=== PATIENT | female | born 1935 | race Two or more races ===

== ENCOUNTER 2018-10-23 11:36 | Inpatient (IN) | payer MEDICARE ==
[2018-10-23] MEDS: CLINDAMYCIN PHOS 900MG/ 50ML 50 ML IV SCH (00:55)
--- OUTSIDE RECORDS SUMMARY | 2018-10-23 11:39 | XMS REPORT | Clinical Summary ---
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 Active lactulose 10 gram/15 mL Take 20 g by 0 (15 mL) solution mouth daily. Active multivitamin with Take 1 tablet 0 minerals tablet by mouth daily. Active levothyroxine (SYNTHROID, Take 100 mcg 0 LEVOXYL) 100 mcg tablet by mouth daily. Active acetaminophen (TYLENOL) Take 650 mg 0 325 MG tablet by mouth every 6 (six) hours as needed for fever. 02/08/2018 Discontinued albuterol (ACCUNEB) 2.5 Take 2.5 mg 0 mg /3 mL (0.083 %) by nebulizer solution nebulization every 6 (six) hours as needed for wheezing. 02/08/2018 Discontinued thiamine 100 MG tablet Take 100 mg 0 by mouth daily. 03/10/2018 metoprolol tartrate 1 tablet (25 60 tablet 0 (LOPRESSOR) 25 mg tablet mg total) by 8 g-tube route 2 (two) times a day for 30 days. 03/10/2018 rivaroxaban (XARELTO) 15 Take 1 tablet 30 tablet 0 mg tablet (15 mg total) 8 by mouth daily for 30 days. 03/11/2018 predniSONE (DELTASONE) 10 Take 1 tablet 30 tablet 0 mg tablet (10 mg total) 8 by mouth daily for 30 days. 03/10/2018 nortriptyline (PAMELOR) 1 capsule (50 30 capsule 0 50 MG capsule mg total) by 8 g-tube route nightly for 30 days. Active Problems Problem Noted Date Hypoxia 02/05/2018 Altered mental status, unspecified 08/20/2017 Altered mental status 08/18/2017 Encounters Care Team Description Date Type Specialty Isac Velasquez MD Demmler, Tod Streeter MD Hypoxia (Primary Dx); Sepsis, due to unspecified organism 02/05/2018 Hospital General Internal Medicine - Encounter 02/08/2018 Isac Velasquez MD PEG tube malfunction (Primary Dx); Generalized abdominal pain 12/18/2017 Emergency Emergency Medicine after 10/22/2017 Social History Date Tobacco Use Types Packs/Day Years Used Unknown If Ever Smoked Smokeless Tobacco: Never Used Alcohol Use Drinks/Week oz/Week Comments No Sex Assigned at Date Recorded Not on file Industry Job Start Date Occupation Not on file Not on file Not on file Travel End Travel History Travel Start No recent travel history available. Last Filed Vital Signs Time Taken Vital Sign Reading 02/08/2018 11:35 AM CDT Blood Pressure 127/78 02/08/2018 11:35 AM CDT Pulse 110 02/08/2018 11:35 AM CDT Temperature 36.7 C (98.1 F) 02/08/2018 11:35 AM CDT Respiratory Rate 18 02/08/2018 11:35 AM CDT Oxygen Saturation 100% - Inhaled Oxygen - Concentration 02/05/2018 9:17 AM CDT Weight 45.4 kg (100 lb) 12/18/2017 8:13 AM CDT Height 157.5 cm (5' 2") 02/05/2018 9:17 AM CDT Body Mass Index 18.29 Plan of Treatment Health Maintenance Due Date Last Done Comments SHINGLES VACCINES (#1) 1986 65+ PNEUMOCOCCAL VACCINE 2001 (1 of 2 - PCV13) PNEUMOCOCCAL 2001 POLYSACCHARIDE VACCINE AGE 65 AND OVER INFLUENZA VACCINE 03/14/2018 Procedures Comments Procedure Name Priority Date/Time Associated Diagnosis POC GLUCOSE Routine 02/08/2018 2:21 PM CDT POC GLUCOSE Routine 02/08/2018 9:50 AM CDT XR CHEST 1 VW PORTABLE Routine 02/08/2018 9:45 AM CDT ZZESTIMATED GFR Routine 02/08/2018 7:40 AM CDT PHOSPHORUS LEVEL Routine 02/08/2018 7:40 AM CDT HC COMPLETE BLD COUNT Routine 02/08/2018 W/AUTO DIFF 7:40 AM CDT BASIC METABOLIC PANEL Routine 02/08/2018 7:40 AM CDT POC GLUCOSE Routine 02/08/2018 5:18 AM CDT POC GLUCOSE Routine 02/08/2018 1:33 AM CDT POC GLUCOSE Routine 02/07/2018 9:30 PM CDT POC GLUCOSE Routine 02/07/2018 4:19 PM CDT POC GLUCOSE Routine 02/07/2018 1:12 PM CDT POC GLUCOSE Routine 02/07/2018 8:59 AM CDT XR CHEST 1 VW PORTABLE Routine 02/07/2018 6:40 AM CDT ARTERIAL BLOOD GAS Routine 02/07/2018 5:01 AM CDT ZZESTIMATED GFR Routine 02/07/2018 3:20 AM CDT LACTIC ACID LEVEL Routine 02/07/2018 3:20 AM CDT PHOSPHORUS LEVEL Routine 02/07/2018 3:20 AM CDT HC COMPLETE BLD COUNT Routine 02/07/2018 W/AUTO DIFF 3:20 AM CDT BASIC METABOLIC PANEL Routine 02/07/2018 3:20 AM CDT POC GLUCOSE Routine 02/06/2018 8:52 PM CDT LACTIC ACID LEVEL Timed 02/06/2018 6:37 PM CDT POC GLUCOSE Routine 02/06/2018 3:49 PM CDT LACTIC ACID LEVEL Timed 02/06/2018 2:55 PM CDT POC GLUCOSE Routine 02/06/2018 11:47 AM CDT LACTIC ACID LEVEL Timed 02/06/2018 8:37 AM CDT POC GLUCOSE Routine 02/06/2018 7:20 AM CDT XR CHEST 1 VW PORTABLE Routine 02/06/2018 6:29 AM CDT POC GLUCOSE Routine 02/06/2018 4:59 AM CDT PHOSPHORUS LEVEL Routine 02/06/2018 4:16 AM CDT ZZESTIMATED GFR Routine 02/06/2018 4:16 AM CDT MAGNESIUM LEVEL Routine 02/06/2018 4:16 AM CDT HC COMPLETE BLD COUNT Routine 02/06/2018 W/AUTO DIFF 4:16 AM CDT BASIC METABOLIC PANEL Routine 02/06/2018 4:16 AM CDT HEPATIC FUNCTION PANEL Routine 02/06/2018 4:16 AM CDT ARTERIAL BLOOD GAS Routine 02/06/2018 4:05 AM CDT POC GLUCOSE Routine 02/06/2018 1:54 AM CDT ZZESTIMATED GFR Timed 02/05/2018 8:56 PM CDT BASIC METABOLIC PANEL Timed 02/05/2018 8:56 PM CDT TROPONIN Timed 02/05/2018 8:56 PM CDT LACTIC ACID LEVEL Timed 02/05/2018 8:56 PM CDT POC GLUCOSE Routine 02/05/2018 8:49 PM CDT RESPIRATORY PATHOGEN Routine 02/05/2018 PANEL 6:05 PM CDT POC GLUCOSE Routine 02/05/2018 4:08 PM CDT LACTIC ACID LEVEL, SEPSIS Timed 02/05/2018 - NOW AND REPEAT 2X EVERY 2:40 PM CDT 3 HOURS TROPONIN Timed 02/05/2018 2:40 PM CDT ECHOCARDIOGRAM 2D Routine 02/05/2018 COMPLETE W MMODE SPECTRAL 1:56 PM CDT COLOR DOPPLER (22191) POC GLUCOSE Routine 02/05/2018 12:[address] ANGIOGRAM PE CHEST STAT 02/05/2018 12:[address] HEAD WO CONTRAST STAT 02/05/2018 12:11 PM CDT ARTERIAL BLOOD GAS Routine 02/05/2018 10:40 AM CDT BLOOD CULTURE, AEROBIC & Routine 02/05/2018 ANAEROBIC 9:56 AM CDT XR CHEST 1 VW PORTABLE STAT 02/05/2018 9:54 AM CDT ZZESTIMATED GFR STAT 02/05/2018 9:51 AM CDT B NATRIURETIC PEPTIDE STAT 02/05/2018 9:51 AM CDT TROPONIN STAT 02/05/2018 9:51 AM CDT PROTHROMBIN TIME WITH INR STAT 02/05/2018 9:51 AM CDT LACTIC ACID LEVEL, SEPSIS STAT 02/05/2018 - NOW AND REPEAT 2X EVERY 9:51 AM CDT 3 HOURS COMPREHENSIVE METABOLIC STAT 02/05/2018 PANEL 9:51 AM CDT CBC WITH PLATELET AND STAT 02/05/2018 DIFFERENTIAL 9:51 AM CDT BLOOD CULTURE, AEROBIC & Routine 02/05/2018 ANAEROBIC 9:51 AM CDT URINALYSIS SCREEN AND STAT 02/05/2018 MICROSCOPY, WITH REFLEX 9:50 AM CDT TO CULTURE GRAM STAIN STAT 02/05/2018 9:50 AM CDT URINE CULTURE STAT 02/05/2018 9:50 AM CDT ECG ED PRELIMINARY Routine 02/05/2018 INTERPRETATION 9:41 AM CDT ECG 12-LEAD STAT 02/05/2018 9:38 AM CDT INTUBATION Routine 02/05/2018 8:58 AM CDT XR ABDOMEN 1 VW PORTABLE STAT 12/18/2017 8:51 AM CDT NV CHANGE GASTROSTOMY Routine 12/18/2017 TUBE PERCUTANEOUS W/O 8:13 AM CDT GUIDE after 10/22/2017 Results * POC glucose (02/08/2018 2:21 PM CDT) Only the most recent of 17 results within the time period is included. POC glucose 217 (H) 65 - 100 mg/dL [facility] Comment: PATHOLOGY AND Meter ID: [id number] GENOMIC MEDICINE Kit Assembler: Loretta Magana Performing Organization Address City/State/Zipcode Phone Number [facility] [address] [place] [address] PATHOLOGY AND GENOMIC MEDICINE * XR Chest 1 Vw Portable (02/08/2018 9:45 AM CDT) Only the most recent of 4 results within the time period is included. Narrative Performed At EXAMINATION: XR CHEST 1 VW PORTABLE [facility] INDICATION: Respiratory Failure or Arrest COMPARISON: Most recent prior. Prior chest and abdominal CTs. IMPRESSION: Stable appearance of the heart and mediastinum. Arteriosclerosis and tortuous thoracic aorta. Hypoventilation of the lungs with bibasilar opacities likely representing atelectasis. Stable calcified granuloma right lower lobe. No visible effusion or pneumothorax. 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 [facility]-[id number] Procedure Note Hm Interface, Radiology Results Incoming - 02/08/2018 9:53 AM CDT EXAMINATION: XR CHEST 1 VW PORTABLE INDICATION: Respiratory Failure or Arrest COMPARISON: Most recent prior. Prior chest and abdominal CTs. IMPRESSION: Stable appearance of the heart and mediastinum. Arteriosclerosis and tortuous thoracic aorta. Hypoventilation of the lungs with bibasilar opacities likely representing atelectasis. Stable calcified granuloma right lower lobe. No visible effusion or pneumothorax. 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 [facility]-[id number] Performing Organization Address City/[facility]/Zipcode Phone Number [facility] [address] [place] [address] * Estimated GFR (02/08/2018 7:40 AM CDT) Only the most recent of 5 results within the time period is included. GFR Non Af Amer >90 mL/min/1.73 m2 [facility] PATHOLOGY AND GENOMIC MEDICINE GFR Af Amer >90 mL/min/1.73 m2 [facility] Comment: PATHOLOGY AND Chronic kidney disease: <60 GENOMIC MEDICINE mL/min/1.73m2 Kidney failure: <15 mL/min/1.73m2 The estimated GFR is calculated from the IDMS-traceable Modification of Diet in Renal Disease Equation. The accuracy of the calculation is poor when the creatinine is normal. Calculated values >90 mL/min/1.73m2 are not reported. This equation has not been validated in children (<18 years), women, the elderly (>70 years), or ethnic groups other than Caucasians and Americans. Specimen Plasma specimen Performing Organization Address City/State/Zipcode Phone Number [facility] [address] [place] [address] PATHOLOGY AND GENOMIC MEDICINE * CBC with platelet and differential (02/08/2018 7:40 AM CDT) Only the most recent of 4 results within the time period is included. WBC 7.4 4.2 - 11.0 k/uL [facility] PATHOLOGY AND GENOMIC MEDICINE RBC 4.27 4.04 - 5.86 m/uL [facility] PATHOLOGY AND GENOMIC MEDICINE HGB 12.0 11.5 - 15.3 g/dL [facility] PATHOLOGY AND GENOMIC MEDICINE HCT 37.5 34.0 - 45.0 % [facility] PATHOLOGY AND GENOMIC MEDICINE MCV 87.8 80.0 - 98.0 fL [facility]OLOGY AND GENOMIC MEDICINE MCH 28.1 27.0 - 34.0 pg [facility] PATHOLOGY AND GENOMIC MEDICINE MCHC 32.0 31.5 - 36.5 g/dL [facility] PATHOLOGY AND GENOMIC MEDICINE RDW - SD 52.9 (H) 37.0 - 51.0 fL [facility] PATHOLOGY AND GENOMIC MEDICINE MPV 10.5 (H) 7.4 - 10.4 fL [facility]OLOGY AND GENOMIC MEDICINE Platelet count 231 150 - 400 k/uL [facility] PATHOLOGY AND GENOMIC MEDICINE Nucleated RBC 0.00 /100 WBC [facility] PATHOLOGY AND GENOMIC MEDICINE Neutrophils 76.0 (H) 36.0 - 66.0 % [facility] PATHOLOGY AND GENOMIC MEDICINE Lymphocytes 15.0 (L) 24.0 - 44.0 % [facility] PATHOLOGY AND GENOMIC MEDICINE Monocytes 7.8 (H) 0.0 - 6.0 % [facility] PATHOLOGY AND GENOMIC MEDICINE Eosinophils 0.5 0.0 - 6.0 % [facility] PATHOLOGY AND GENOMIC MEDICINE Basophils 0.4 0.0 - 1.2 % [facility] PATHOLOGY AND GENOMIC MEDICINE Immature granulocytes 0.3 0.0 - 1.0 % [facility] PATHOLOGY AND GENOMIC MEDICINE Specimen Blood Performing Organization Address City/[facility] [place] [address] PATHOLOGY [facility] * Phosphorus level (02/08/2018 7:40 AM CDT) Only the most recent of 3 results within the time period is included. Phosphorus 1.8 (L) 2.4 - 4.5 mg/dL [facility] PATHOLOGY AND GENOMIC MEDICINE Specimen Plasma specimen Performing Organization Address City/[facility] [place] [address] PATHOLOGY [facility] * Basic metabolic panel (02/08/2018 7:40 AM CDT) Only the most recent of 4 results within the time period is included. Sodium 138 135 - 150 mEq/L [facility] DEPARTMENT OF PATHOLOGY AND GENOMIC MEDICINE Potassium 4.1 3.5 - 5.0 mEq/L [facility] PATHOLOGY AND GENOMIC MEDICINE Chloride 100 98 - 112 mEq/L [facility] PATHOLOGY AND GENOMIC MEDICINE CO2 24 24 - 31 mmol/L [facility] PATHOLOGY AND GENOMIC MEDICINE Anion gap 14@ANIO 7 - 15 mEq/L [facility] PATHOLOGY AND GENOMIC MEDICINE BUN 21 (H) 7 - 18 mg/dL [facility] PATHOLOGY AND GENOMIC MEDICINE Creatinine 0.60 0.50 - 0.90 mg/dL [facility] PATHOLOGY AND GENOMIC MEDICINE Glucose 168 (H) 65 - 100 mg/dL [facility] PATHOLOGY AND GENOMIC MEDICINE Calcium 9.6 8.8 - 10.2 mg/dL [facility] PATHOLOGY AND GENOMIC MEDICINE Specimen Plasma specimen Performing Organization Address City/State/Zipcode Phone Number [place] [address] [place] [address] PATHOLOGY AND GENOMIC MEDICINE * Arterial blood gas (02/07/2018 5:01 AM CDT) Only the most recent of 3 results within the time period is included. Kit Assembler JSXB [facility] PATHOLOGY AND GENOMIC MEDICINE Collection site LRA [facility] PATHOLOGY AND GENOMIC MEDICINE O2 therapy HFNC [facility] PATHOLOGY AND GENOMIC MEDICINE pH, arterial 7.580 (HH) 7.350 - 7.450 units [facility] Comment: PATHOLOGY AND Results called to and read GENOMIC MEDICINE back by FRANK GUALLPA at02/07/201805:10 by _IV_. pCO2, arterial 24.8 (LL) 35.0 - 45.0 mmHg [facility] Comment: PATHOLOGY AND Results called to and read GENOMIC MEDICINE back by FRANK GUALLPA at02/07/201805:10 by _IV_. pO2, arterial 176.0 (H) 80.0 - 90.0 mmHg [facility] PATHOLOGY AND GENOMIC MEDICINE O2 saturation, arterial >100.0 95.0 - 100.0 % [facility] PATHOLOGY AND GENOMIC MEDICINE Base excess, arterial 1.3 mEq/L [facility] PATHOLOGY AND GENOMIC MEDICINE Bicarbonate 23.2 21.0 - 28.0 mEq/L [facility] PATHOLOGY AND GENOMIC MEDICINE O2 content 17.1 VOL% [facility] PATHOLOGY AND GENOMIC MEDICINE FiO2, inspired O2% 32.0 % [facility] PATHOLOGY AND GENOMIC MEDICINE Inspired O2 l/m 3 L/min [facility] PATHOLOGY AND GENOMIC MEDICINE Carboxyhemoglobin 0.2 0.0 - 1.4 % [facility] Comment: PATHOLOGY AND Reference Ranges: GENOMIC MEDICINE Carboxyhemoglobin Non smoker: 0.0 - 2.0% Smoker: 2.1 - 5.0% Heavy smoker: 5.1 - 9% Methemoglobin <0.0 0.0 - 1.0 % [facility] PATHOLOGY AND GENOMIC MEDICINE Hemoglobin, blood gas 12.0 12.0 - 16.0 g/dL [facility] PATHOLOGY AND GENOMIC MEDICINE pO2, A-a 24.5 mmHg [facility] PATHOLOGY AND GENOMIC MEDICINE Specimen Blood Performing Organization Address [facility] [place] [address] PATHOLOGY AND GENOMIC MEDICINE * Lactic acid level (02/07/2018 3:20 AM CDT) Only the most recent of 5 results within the time period is included. Lactic acid 1.8 0.5 - 2.2 mmol/L [facility] PATHOLOGY AND GENOMIC MEDICINE Specimen Blood Performing Organization Address [facility] [place] [address] PATHOLOGY AND GENOMIC MEDICINE * Magnesium level (02/06/2018 4:16 AM CDT) Magnesium 1.80 1.60 - 2.40 mg/dL [facility] PATHOLOGY AND GENOMIC MEDICINE Specimen Plasma specimen Performing Organization Address [facility] [place] [address] PATHOLOGY AND GENOMIC MEDICINE * Hepatic function panel (02/06/2018 4:16 AM CDT) Albumin 2.6 (L) 3.5 - 5.0 g/dL [facility] PATHOLOGY AND GENOMIC MEDICINE Total bilirubin 0.4 0.2 - 1.2 mg/dL [facility] PATHOLOGY AND GENOMIC MEDICINE Bilirubin direct <0.2 0.0 - 0.4 mg/dL [facility] PATHOLOGY AND GENOMIC MEDICINE Alkaline phosphatase 93 0 - 104 U/L [facility] PATHOLOGY AND GENOMIC MEDICINE Protein 6.8 6.3 - 8.3 g/dL [facility] PATHOLOGY AND GENOMIC MEDICINE ALT 15 5 - 50 U/L [facility] PATHOLOGY AND GENOMIC MEDICINE AST 32 10 - 35 U/L [facility] PATHOLOGY AND GENOMIC MEDICINE Specimen Plasma specimen Performing Organization Address City/[facility]/Zipcode Phone Number [address] [place] [address] PATHOLOGY AND GENOMIC MEDICINE * Troponin (02/05/2018 8:56 PM CDT) Only the most recent of 3 results within the time period is included. Troponin <0.30 0.00 - 0.30 ng/mL [facility] Comment: PATHOLOGY AND 0.11 - 1.49 GENOMIC MEDICINE ng/mlMay indicate increased risk of acute coronary syndrome. >=1.5 ng/ml Consistent with acute myocardial infarction. The diagnostic value of a single normal or non-diagnostic result is questionable.Serial samples at 2-6 hour intervals are required to rule out acute myocardial injury. Specimen Plasma specimen Performing Organization Address [facility] Cent[facility]ode Phone Number [address] [place] [address] PATHOLOGY AND GENOMIC MEDICINE * Respiratory pathogen panel (02/05/2018 6:05 PM CDT) Respiratory pathogen Positive for [facility] DEPARTMENT OF panel Rhinovirus/Enterovirus PATHOLOGY AND GENOMIC MEDICINE Negative for all other pathogens tested: Negative for Adenovirus Negative for Coronavirus HKU1 Negative for Coronavirus NL63 Negative for Coronavirus 229E Negative for Coronavirus OC43 Negative for Human Metapneumovirus Negative for Influenza A Negative for Influenza A/H1 Negative for Influenza A/H3 Negative for Influenza A/H1-2009 Negative for Influenza B Negative for Parainfluenza Virus 1 Negative for Parainfluenza Virus 2 Negative for Parainfluenza Virus 3 Negative for Parainfluenza Virus 4 Negative for Respiratory Syncytial Virus Negative for Bordetella pertussis Negative for Chlamydophila pneumoniae Negative for Mycoplasma pneumoniae This real-time PCR assay detects the presence of nucleic acids (RNA or DNA) for the respiratory pathogens listed. A result of "Not-detected" does not exclude the possibility of the presence of one or more pathogens at concentrations less than the detectable limits of the assa (A) Comment: Specimen Information Specimen Source: Nares Specimen Site: Right Specimen Nares - Right Performing Organization Address City/[facility]/Zipcode Phone Number [facility] DEPARTMENT OF [address] [place] [address] PATHOLOGY AND GENOMIC MEDICINE * Lactic acid level, SEPSIS - Now and repeat 2x every 3 hours (02/05/2018 2:40 PM CDT) Only the most recent of 2 results within the time period is included. Lactic acid 4.1 (HH) 0.5 - 2.2 mmol/L [facility] Comment: PATHOLOGY AND Results called to and read [place] MEDICINE back by JUANCARLOS WARE / [employer]BA [employer] 15:2406 JGP Specimen Blood Performing Organization Address City/[facility]/Zipcode Phone Number [facility] [address] [place] [address] PATHOLOGY AND GENOMIC MEDICINE * Echocardiogram complete w contrast and 3D if needed (02/05/2018 1:56 PM CDT) Velocity Ratio (V1/V2) 0.72 m/s [facility] IVS,d 1.15 0.6 - 1.2 cm [facility] EF 61.49 % [facility] LVPWD,d 1.09 cm [facility] AoV Mean PG 3.04 mmHg [facility] AV LVOT peak gradient 2.77 mmHg [facility] MV mean gradient 2.84 mmHg [facility] MV valve area p 1/2 6.90 cm2 [facility] method PV Pk Grad 3.60 mmHg [facility] E wave decelartion time 109.90 msec [facility] LVOT Diam,S 1.88 cm [facility] LVOT area 2.77 cm2 [facility] LVOT Vmax 0.83 m/s [facility] LVOT VTI 0.14 m [facility] AoV Peak PG 5.27 mmHg [facility] MV Peak E Karl 1.15 m/s [facility] MV stenosis pressure 1/2 31.87 ms [facility] time MV Peak A Karl 0.00 m/s [facility] Ao Root Diameter 2.84 cm [facility] AoV Area, Vmax 2.01 cm2 [facility] AoV Area, VTI 1.79 cm2 [facility] AoV Vmax 1.15 m/s [facility] IVS/LVPW,2D 1.06 [facility] Left Atrium Dimension 3.19 cm [facility] Anterior LV,d 3.88 cm [facility] LV,s 2.62 cm [facility] PV VMAX 0.95 m/s [facility] TR Vpeak 2.57 mm/s [facility] MV E A ratio 343.39 mmHg [facility] TR pk grad 23.92 mmHg [facility] MR peak grad 6.65 mmHg [facility] Ao Root Diameter 2.84 cm [facility] AR Press Half Time 482.24 ms [facility] LV SYS VOL 25.08 ml [facility] LV ORNELAS VOL 65.13 ml [facility] LA area s A4C 10.30 cm2 [facility] LA Vol MOD A4C 16.75 ml [facility] LV SV Teich 2D 40.05 ml [facility] LV Vol s Teich PSAX 25.08 ml [facility] LVOT CO 3.61 l/min [facility] LVOT HR for LVOT CO 92.19 bpm [facility] MV Vmax 1.29 m [facility] MV VTI Tips 0.18 m [facility] AoV Vmn 0.84 [facility] AR slope 1.98 [facility] Ar Vmax 3.30 [facility] IVS s 2D 1.46 [facility] LV FS Cube 2D 32.48 [facility] LV FS Teich 2D 32.48 [facility] AoV VTI 0.22 m [facility] LV EF,2D 69.22 % [facility] MV AE ratio 0.00 [facility] LVOT Vmn 0.58 [facility] Aov area Vmn 1.92 cm2 [facility] LVOT mean grad 1.52 mmHg [facility] MAX Pred HR 138.13 [facility] 85 of MPHR 117.41 [facility] AR DT 1,662.90 msec [facility] AR pk grad 43.51 mmHg [facility] Calc MPHR 138.13 bpm [facility] IVS pct thck PLAX 27.11 % [facility] LV SV Cube 2D 40.45 ml [facility] LV vol d cube 2D 58.44 ml [facility] LV vol s cube 2D 17.99 ml [facility] LVPW pct thck PLAX 32.48 % [facility] LVPW s PLAX 1.44 cm [facility] MV Decel slope 10.48 m/s2 [facility] Pred Exer Dur R1 5.54 [facility] Pred METS R1 4.06 [facility] Narrative Performed At [facility] The left ventricle chamber size is normal. Left Ventricular ejection fraction is 55 - 60%. Trace aortic regurgitation. Trace aortic regurgitation Performing Organization Address City/State/Zipcode Phone Number [facility] [address] [place] [address] * CT Angiogram Pe Chest (02/05/2018 12:11 PM CDT) Narrative Performed At EXAMINATION: CT ANGIOGRAM PE CHEST [facility] CLINICAL HISTORY: sob TECHNIQUE:CT angiographic images of the chest are obtained during intravenous administration of iodinated contrast. Computerized reformatted images and 3-D images were also obtained and archived. CT pulmonary embolus protocol. CT scans are performed using radiation dose reduction techniques.Technical factors are evaluated and adjusted to ensure appropriate moderation of exposure.Automated dose management technology is applied to adjust radiation exposure while achieving a diagnostic quality image. COMPARISON: 02/05/2018 FINDINGS: The endotracheal tube and nasogastric tube are present. The thoracic aorta has no aneurysmal dilatation. The pulmonary arteries are well opacified. There is no evidence of any pulmonary embolism. The heart has no pericardial effusion. The visualized portions of the liver, spleen are unremarkable. There is a 6 cm calcified hematoma seen within the left adrenal gland. This was seen on prior studies and is unchanged. The lung zones demonstrate mild emphysematous changes to be present. There is mild compressive atelectasis seen at the lower lung bases. There is no pleural effusion or pneumothorax. IMPRESSION: 1. There is no evidence of any pulmonary embolism. 2. The thoracic aorta has no aneurysmal dilatation or dissection. Mild atherosclerotic vascular changes are present. 3. The lung zones demonstrate emphysematous changes to be present. There is no focal consolidation. 4. Compressive atelectasis is seen at the lower lung bases. [facility]-[id number] Procedure Note Interface, Radiology Results Incoming - 02/05/2018 12:25 PM CDT EXAMINATION: CT ANGIOGRAM PE CHEST CLINICAL HISTORY: sob TECHNIQUE: CT angiographic images of the chest are obtained during intravenous administration of iodinated contrast. Computerized reformatted images and 3-D images were also obtained and archived. CT pulmonary embolus protocol. CT scans are performed using radiation dose reduction techniques. Technical factors are evaluated and adjusted to ensure appropriate moderation of exposure. Automated dose management technology is applied to adjust radiation exposure while achieving a diagnostic quality image. COMPARISON: 02/05/2018 FINDINGS: The endotracheal tube and nasogastric tube are present. The thoracic aorta has no aneurysmal dilatation. The pulmonary arteries are well opacified. There is no evidence of any pulmonary embolism. The heart has no pericardial effusion. The visualized portions of the liver, spleen are unremarkable. There is a 6 cm calcified hematoma seen within the left adrenal gland. This was seen on prior studies and is unchanged. The lung zones demonstrate mild emphysematous changes to be present. There is mild compressive atelectasis seen at the lower lung bases. There is no pleural effusion or pneumothorax. IMPRESSION: 1. There is no evidence of any pulmonary embolism. 2. The thoracic aorta has no aneurysmal dilatation or dissection. Mild atherosclerotic vascular changes are present. 3. The lung zones demonstrate emphysematous changes to be present. There is no focal consolidation. 4. Compressive atelectasis is seen at the lower lung bases. [id number] Performing Organization Address City/State/Zipcode Phone Number [facility] [address] [place] [address] * CT Head Wo Contrast (02/05/2018 12:11 PM CDT) Narrative Performed At EXAMINATION: CT HEAD WO CONTRAST [facility] CLINICAL HISTORY: HEADACHEACUTESEVERETHUNDERCLAPWORST DAMIAN OF LIFE COMPARISON:CT brain from August 18, 2017 TECHNIQUE: Noncontrast enhanced images of the brain were obtained from the skull base to the vertex. Both soft tissue and bone reconstruction algorithms were performed.CT scans are performed using radiation dose reduction techniques. Technical factors are evaluated and adjusted to ensure appropriate moderation of exposure. Automated dose management technology is applied to adjust radiation exposure while achieving a diagnostic quality image. FINDINGS: Artifacts obscure details. There is no definite evidence of acute intracranial hemorrhage or mass, hydrocephalus or midline shift, stroke or thrombus in the vessels. There are relatively stable severe chronic changes in the brain including old infarcts in the cerebellum, left parietal lobe, thalami, basal ganglia and possibly the lizandro. There is an endotracheal tube and a nasogastric tube. The orbits are unremarkable. There is mucosal thickening and partial opacification of some of the sinuses. IMPRESSION: No acute intracranial abnormality identified. 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 Sinusitis which is improved compared with August year [id number] Procedure Note Interface, Radiology Results Incoming - 02/05/2018 12:16 PM CDT EXAMINATION: CT HEAD WO CONTRAST CLINICAL HISTORY: HEADACHE ACUTE SEVERE THUNDERCLAP WORST DAMIAN OF LIFE COMPARISON: CT brain from August 18, 2017 TECHNIQUE: Noncontrast enhanced images of the brain were obtained from the skull base to the vertex. Both soft tissue and bone reconstruction algorithms were performed. CT scans are performed using radiation dose reduction techniques. Technical factors are evaluated and adjusted to ensure appropriate moderation of exposure. Automated dose management technology is applied to adjust radiation exposure while achieving a diagnostic quality image. FINDINGS: Artifacts obscure details. There is no definite evidence of acute intracranial hemorrhage or mass, hydrocephalus or midline shift, stroke or thrombus in the vessels. There are relatively stable severe chronic changes in the brain including old infarcts in the cerebellum, left parietal lobe, thalami, basal ganglia and possibly the lizandro. There is an endotracheal tube and a nasogastric tube. The orbits are unremarkable. There is mucosal thickening and partial opacification of some of the sinuses. IMPRESSION: No acute intracranial abnormality identified. 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 Sinusitis which is improved compared with August this year [id number] Performing Organization Address [facility] Centercode Phone Number [facility] [address] [place] [address] * Blood culture, aerobic & anaerobic (02/05/2018 9:56 AM CDT) Only the most recent of 2 results within the time period is included. Blood culture isolate No growth after 5 days of [facility] DEPARTMENT OF incubation. PATHOLOGY AND Comment: GENOMIC MEDICINE Specimen Information Specimen Source: Blood Specimen Site: Hand Right Specimen Blood Performing Organization Address [facility] Centercond Phone Number [facility] [address] [place] [address] PATHOLOGY AND GENOMIC MEDICINE * Prothrombin time with INR (02/05/2018 9:51 AM CDT) Prothrombin time 14.7 12.0 - 15.0 sec [facility]Y AND GENOMIC MEDICINE INR 1.13 (H) 0.92 - 1.12 [facility] Comment: PATHOLOGY AND For patients on anticoagulant GENOMIC MEDICINE therapy, reference ranges below: Indication: INR Value Treatment of Venous Thrombosis, 2.0-3.0 pulmonary emboli, or prophylaxis of a venous thrombosis, or systemic emboli. High dose, high risk patients 3.0-4.5 with mechanical valves. NOTE:INR values over 3.0 are sometimes associated with gastrointestinal hemorrhage, especially values over 4.0. Specimen Blood Performing Organization Address City/[facility] Centercode Phone Number [facility] [address] [place] [address] PATHOLOGY AND GENOMIC MEDICINE * B natriuretic peptide (02/05/2018 9:51 AM CDT) BNP 214 (H) 0 - 100 pg/mL [facility] OF PATHOLOGY AND GENOMIC MEDICINE Specimen Blood Performing Organization Address [facility] Centercode Phone Number [place] [address] [place] [address] PATHOLOGY AND GENOMIC MEDICINE * Comprehensive metabolic panel (02/05/2018 9:51 AM CDT) Sodium 138 135 - 150 mEq/L [facility] OF PATHOLOGY AND GENOMIC MEDICINE Potassium 4.8 3.5 - 5.0 mEq/L [facility] OF PATHOLOGY AND GENOMIC MEDICINE Chloride 101 98 - 112 mEq/L [facility] OF PATHOLOGY AND GENOMIC MEDICINE CO2 21 (L) 24 - 31 mmol/L [facility] OF PATHOLOGY AND GENOMIC MEDICINE Anion gap 16@ANIO (H) 7 - 15 mEq/L [facility] OF PATHOLOGY AND GENOMIC MEDICINE BUN 30 (H) 7 - 18 mg/dL [facility] OF PATHOLOGY AND GENOMIC MEDICINE Creatinine 0.80 0.50 - 0.90 mg/dL [facility] OF PATHOLOGY AND GENOMIC MEDICINE Glucose 160 (H) 65 - 100 mg/dL [facility] OF PATHOLOGY AND GENOMIC MEDICINE Calcium 9.7 8.8 - 10.2 mg/dL [facility] OF PATHOLOGY AND GENOMIC MEDICINE Protein 7.7 6.3 - 8.3 g/dL [facility] OF PATHOLOGY AND GENOMIC MEDICINE Albumin 3.3 (L) 3.5 - 5.0 g/dL [facility] OF PATHOLOGY AND GENOMIC MEDICINE A/G ratio 0.8 0.7 - 3.8 [facility] OF PATHOLOGY AND GENOMIC MEDICINE Alkaline phosphatase 109 (H) 0 - 104 U/L [facility] OF PATHOLOGY AND GENOMIC MEDICINE AST 25 10 - 35 U/L [facility] OF PATHOLOGY AND GENOMIC MEDICINE ALT 16 5 - 50 U/L [facility] OF PATHOLOGY AND GENOMIC MEDICINE Total bilirubin 0.8 0.2 - 1.2 mg/dL [facility] OF PATHOLOGY AND GENOMIC MEDICINE Specimen Plasma specimen Performing Organization Address [facility] Centercode Phone Number [place] [address] [place] [address] PATHOLOGY AND GENOMIC MEDICINE * Urinalysis screen and microscopy, with reflex to culture (02/05/2018 9:50 AM CDT) Specimen site [place] [facility] OF PATHOLOGY AND GENOMIC MEDICINE Color, UA Yellow [facility] OF PATHOLOGY AND GENOMIC MEDICINE Appearance, UA Slightly-Cloudy [facility] OF PATHOLOGY AND GENOMIC MEDICINE Specific gravity, UA 1.014 1.001 - 1.035 [facility] OF PATHOLOGY AND GENOMIC MEDICINE pH, UA 8.0 5.0 - 8.5 [facility] OF PATHOLOGY AND GENOMIC MEDICINE Protein, UA 1+ (A) Negative [facility] OF PATHOLOGY AND GENOMIC MEDICINE Glucose, UA Negative Negative [facility] OF PATHOLOGY AND GENOMIC MEDICINE Ketones, UA Negative Negative [facility] OF PATHOLOGY AND GENOMIC MEDICINE Bilirubin, UA Negative Negative [facility] OF PATHOLOGY AND GENOMIC MEDICINE Blood, UA Negative Negative [facility] OF PATHOLOGY AND GENOMIC MEDICINE Nitrite, UA Negative Negative [facility] OF PATHOLOGY AND GENOMIC MEDICINE Urobilinogen, UA 4.0 (A) <2.0 [facility] OF PATHOLOGY AND GENOMIC MEDICINE Leukocyte esterase, UA Trace (A) Negative [facility] OF PATHOLOGY AND GENOMIC MEDICINE Epithelial cells, UA Few /HPF [facility] OF PATHOLOGY AND GENOMIC MEDICINE WBC, UA 13 (H) 0 - 5 /HPF [facility] OF PATHOLOGY AND GENOMIC MEDICINE RBC, UA 2 0 - 5 /HPF [facility] OF PATHOLOGY AND GENOMIC MEDICINE Bacteria, UA Trace None seen [facility] OF PATHOLOGY AND GENOMIC MEDICINE Yeast, UA None seen [facility] OF PATHOLOGY AND GENOMIC MEDICINE Yeast with pseudohyphae, None seen [facility] OF UA PATHOLOGY AND GENOMIC MEDICINE Specimen Urine Performing Organization Address City/State/Zipcode Phone Number [facility] [address] [place] [address] PATHOLOGY AND GENOMIC MEDICINE * Gram stain (02/05/2018 9:50 AM CDT) Gram stain result Rare WBC's [facility] DEPARTMENT OF Few Gram positive cocci in PATHOLOGY AND pairs GENOMIC MEDICINE Comment: Specimen Information Specimen Source: Urine Specimen Site: [place] Specimen Urine - [place] Performing Organization Address City/State/Zipcode Phone Number [facility] DEPARTMENT OF [address] [place] [address] PATHOLOGY AND GENOMIC MEDICINE * Urine culture (02/05/2018 9:50 AM CDT) Urine culture isolate Mixed Gram positive alexandra [facility] DEPARTMENT OF 10-1 cfu/ml PATHOLOGY AND (A) GENOMIC MEDICINE Comment: Specimen Information Specimen Source: Urine Specimen Site: [place] Specimen Urine - [place] Performing Organization Address [facility] Phone Number [facility] DEPARTMENT OF [address] [place] [address] PATHOLOGY AND GENOMIC MEDICINE * ECG ED Preliminary Interpretation - NOT AN ORDER (02/05/2018 9:41 AM CDT) Narrative Performed At Isac Velasquez MD 02/05/20189:41 AM ECG ED Preliminary Interpretation - Not an Order Performed by: ISAC VELASQUEZ Authorized by: ISAC VELASQUEZ ECG reviewed by ED Physician in the absence of a boiler service technician: yes Previous ECG: Previous ECG:Compared to current Interpretation: Interpretation: normal Rate: ECG rate:108 ECG rate assessment: tachycardic Rhythm: Rhythm: sinus rhythm and sinus tachycardia Ectopy: Ectopy: none QRS: QRS axis:Normal Conduction: Conduction: normal ST segments: ST segments:Normal T waves: T waves: normal * ECG 12 lead (02/05/2018 9:38 AM CDT) Ventricular rate 108 [facility] Atrial rate 108 [facility] NV interval 188 [facility] QRSD interval 106 [facility] QT interval 356 [facility] QTC interval 477 [facility] P axis 1 77 [facility] QRS axis 1 -29 [facility] T wave axis 60 [facility] EKG impression Sinus tachycardia-Inferior [facility] MUSE infarct , age undetermined-Abnormal ECG-No previous ECGs available- Performing Organization Address City/[facility] Centercond Phone Number [facility] [address] [place] [address] * INTUBATION (02/05/2018 8:58 AM CDT) Narrative Performed At Isac Velasquez MD 02/05/2018 11:28 AM Intubation Performed by: ISAC VELASQUEZ Authorized by: ISAC VELASQUEZ Consent: Consent obtained:Emergent situation Consent given by: son. Risks discussed:Aspiration, bleeding, , brain injury, dental trauma, hypoxia, laryngeal injury and pneumothorax Alternatives discussed:No treatment, delayed treatment, alternative treatment, observation and referral [place] protocol: Procedure explained and questions answered to patient or proxy's satisfaction: yes Relevant documents present and verified: yes Test results available and properly labeled: yes Imaging studies available: yes Required blood products, implants, devices, and special equipment available: yes Site/side marked: yes Immediately prior to procedure, a time out was called: yes Patient identity confirmed:Arm band Pre-procedure details: Patient status:Altered mental status Mallampati score:3 Pretreatment medications:Lidocaine Induction:Etomidate Paralytics:Succinylcholine Procedure details: Preoxygenation:Bag valve mask CPR in progress: no Intubation method:Oral Technique:Video laryngoscopy Laryngoscope blade:Mac 3 Grade view:3 Difficult airway?: Yes Tube size (mm):7.5 Tube type:Cuffed Number of attempts:1 Ventilation between attempts: no Cricoid pressure: yes Tube visualized through cords: yes Placement assessment: ETT to lip:23 ETT to teeth:23 Tube secured with:ETT menezes Breath sounds:Equal Placement verification: chest rise and CXR verification CXR findings:ETT in proper place Post-procedure details: Patient tolerance of procedure:Tolerated well, no immediate complications * XR Abdomen 1 Vw Portable (12/18/2017 8:51 AM CDT) Narrative Performed At EXAMINATION:XR ABDOMEN 1 VW PORTABLE [facility] CLINICAL HISTORY:feeding tube placement COMPARISON:None. IMPRESSION: Gastrostomy tube is located in the gastric fundus. Contrast was administered which opacifies the gastric lumen and demonstrates mild gastroesophageal reflux. Bowel gas pattern is nonobstructive. There is no gross intra-abdominal free air. Eggshell calcification related to the left adrenal gland noted in the left upper abdomen. There is vascular calcification. [facility]-[id number] Procedure Note Interface, Radiology Results Incoming - 12/18/2017 9:01 AM CDT EXAMINATION: XR ABDOMEN 1 VW PORTABLE CLINICAL HISTORY: feeding tube placement COMPARISON: None. IMPRESSION: Gastrostomy tube is located in the gastric fundus. Contrast was administered which opacifies the gastric lumen and demonstrates mild gastroesophageal reflux. Bowel gas pattern is nonobstructive. There is no gross intra-abdominal free air. Eggshell calcification related to the left adrenal gland noted in the left upper abdomen. There is vascular calcification. [facility]-[id number] Performing Organization Address City/State/Zipcode Phone Number [facility] [address] [place] [address] * Feeding tube replacement (12/18/2017 8:13 AM CDT) Narrative Performed At Isac Velasquez MD 12/18/20172:14 PM GI Tubes Performed by: ISAC VELASQUEZ Authorized by: ISAC VELASQUEZ Consent: Consent obtained:Emergent situation Consent given by:Healthcare agent [place] protocol: Patient identity confirmed:Arm band Pre-procedure details: Old tube type:Gastrostomy Old tube size:24 Fr Anesthesia (see MAR for exact dosages): Anesthesia method:None Procedure details: Patient position:Sitting Procedure type:Replacement Fluoro Guidance?: No Tube type:Gastrostomy Tube size:24 Fr Bulb inflation volume:10 Bulb inflation fluid:Normal saline Post-procedure details: Placement difficulty:None Bleeding:None Patient tolerance of procedure:Tolerated well, no immediate complications Comments: X-ray is ordered, no results yet. after 10/22/2017 Insurance Payer Benefit Subscriber ID Type Phone Address Plan / Group MEDICARE MEDICARE xxxxxxxxxx Medicare [place], [place] PART A AND B [phone] [id number] [address] [facility] (Home) [place] [address] Advance Directives Patient has advance care planning documents on file. For more information, shonda ruiz contact: Vladimir Portillo [address] [place] [address]
[2018-10-23] MEDS ORDERED: ALBUTEROL SULF 0.083% NEB SOLN 3 ML NEB NEB STA (11:55)
[2018-10-23] MEDS ORDERED: IPRATROPIUM BROMIDE 0.02% 2.5 ML NEB NEB ONE (12:00)
--- NOTE | 2018-10-23 12:41 | NUR ---
Clayton Mcdaniel (POA and son) [phone] emergency contact.
[2018-10-23 12:52] LABS: BASOPHILS # (AUTO) 0.1 (0.0-0.1); BASOPHILS % 0.4 % (0.0-1.0); EOSINOPHILS % 0.2 % (0.0-6.0); HEMATOCRIT 41.7 % (34.2-44.1); HEMOGLOBIN 13.4 g/dL (12.0-16.0); LYMPHOCYTES # (AUTO) 0.4 (1.0-3.2); LYMPHOCYTES % 2.7 % (18.0-39.1); MEAN CORPUSCULAR HEMOGLOBIN 30.9 pg (28-32); MEAN CORPUSCULAR HGB CONC 32.1 g/dL (31-35); MEAN CORPUSCULAR VOLUME 96.1 fL (81-99); MONOCYTES # (AUTO) 0.9 (0.2-0.8); MONOCYTES % 5.2 % (4.4-11.3); NEUTROPHILS # (AUTO) 14.7 (2.1-6.9); NEUTROPHILS % 90.8 % (38.7-80.0); PLATELET COUNT 226 x10e3/uL (140-360); RED BLOOD COUNT 4.34 x10e6/uL (3.6-5.1); RED CELL DISTRIBUTION WIDTH 13.5 % (11.7-14.4)
[2018-10-23 13:09] LABS: CLARITY,URINE HAZY (CLEAR); COLOR,URINE STRAW (YELLOW)
[2018-10-23 13:10] LABS: KETONES,URINE NEGATIVE (NEGATIVE); LEUKOCYTE ESTERASE ,URINE 2+ (NEGATIVE); NITRITE,URINE NEGATIVE (NEGATIVE); PROTEIN,URINE DIPSTICK NEGATIVE (NEGATIVE)
[2018-10-23 13:11] LABS: BILIRUBIN,URINE NEGATIVE (NEGATIVE); URINE UROBILINOGEN 0.2 mg/dL (0.2 - 1)
[2018-10-23 13:12] LABS: BACTERIA,URINE MANY /HPF; EPITHELIAL CELLS,URINE MANY /LPF; WBC,URINE (MAN) 21-50 /HPF (0-5)
--- NOTE | 2018-10-23 13:14 | NUR ---
ARACELI FROM LAB CALLED TO REPORT CRITICAL LACTIC ACID. INFORMED DR. HANNA WELL HANH RN PRIMARY NURSE.
[2018-10-23 13:15] LABS: ALBUMIN 2.9 g/dL (3.5-5.0); ALBUMIN/GLOBULIN RATIO 0.9 (0.8-2.0); ANION GAP 18.4 mmol/L (8-16); CALCIUM 9.2 mg/dL (8.4-10.2); CREATININE, SERUM 1.19 mg/dL (0.57-1.11); POTASSIUM 3.4 mmol/L (3.5-5.1)
--- NOTE | 2018-10-23 13:20 | Diagnostic Imaging Report ---
EXAMINATION: CHEST SINGLE (PORTABLE) INDICATION: Sepsis. COMPARISON: None FINDINGS: TUBES and LINES: None. LUNGS: Low lung volumes. Mild patchy bibasilar opacities. No evidence of lobar consolidation or pulmonary edema. PLEURA: No pleural effusion or pneumothorax. HEART AND MEDIASTINUM: The cardiomediastinal silhouette is unremarkable. There are atherosclerotic calcifications within the aorta. BONES AND SOFT TISSUES: No acute osseous abnormality. UPPER ABDOMEN: No free air under the diaphragm. IMPRESSION: Low lung volumes with patchy bibasilar opacities, which may reflect atelectasis or early pneumonia in the appropriate clinical setting. Follow-up chest radiograph is suggested to assess for resolution. Signed by: Dr. Jarrod Newman MD on 10/23/2018 1:17 PM
[2018-10-23] MEDS ORDERED: SODIUM CHLORIDE 0.9% 1000ML 1,000 ML ONE ×2 (13:52→17:42)
[2018-10-23] MEDS ORDERED: SODIUM CHLORIDE 0.9% 1000ML 1,000 ML IV ONE ×4 (14:00→22:00)
[2018-10-23] MEDS ORDERED: CLINDAMYCIN PHOS 900MG/ 50ML 50 ML IV STA (16:09)
--- NOTE | 2018-10-23 17:10 | NUR ---
Patient repositioned at this time. Heel protectors applied and wedge placed.
--- NOTE | 2018-10-23 17:40 | NUR ---
ARACELI FROM LAB CALLED TO REPORT CRITICAL LACTIC ACID 48.8. INFORMED DR. HANNA AND HANH RN PRIMARY NURSE OF THIS.
--- NOTE | 2018-10-23 17:49 | NUR ---
Patient repositioned at this time. Will continue to monitor patient.
[2018-10-23] MEDS ORDERED: CEFTRIAXONE SOD 1 GM VIAL ONE (17:55)
[2018-10-23] MEDS ORDERED: CEFTRIAXONE SOD 1 GM/NS 50 ML 50 ML IV ONE (18:00)
[2018-10-23] MEDS ORDERED: ALBUTEROL/IPRATROPIUM 3 ML NEB NEB ONE (18:00)
--- NOTE | 2018-10-23 19:26 | NUR ---
Walking rounds with JOSE Doe.
[2018-10-23] MEDS ORDERED: CEFTRIAXONE SOD 1 GRAM/0.9% SOD CHL 50ML BAG IV SCH (19:30)
--- OUTSIDE RECORDS SUMMARY | 2018-10-23 20:21 | XMS REPORT ---
Author Author [facility] Address Unknown Phone Unavailable Care Team Providers Care Carbon Dioxide Operator Name Role Phone Mary HANNA Unavailable Unavailable Problems This patient has no known problems. Allergies, Adverse Reactions, Alerts This patient has no known allergies or adverse reactions. Medications This patient has no known medications. Results Test Description Test Time Test Comments Text Results Atomic Results Result Comments CHEST SINGLE (PORTABLE) 2018-10-23 13:15:00 [place] [address] Patient Name: KEVIN PORTILLO MR #: [id number] : 1935 Age/Sex: 83/F Req #: [id number] Adm Physician: Ordered by: SHAGUFTA HANNA MD Report #: [id number] Location: ER Room/Bed: Procedure: [id number] DX/CHEST SINGLE (PORTABLE) Exam Date: 10/23/18 Exam Time: 1300 REPORT STATUS: Signed EXAMINATION: CHEST SINGLE (PORTABLE) IN DICATION: Sepsis. COMPARISON: None FINDINGS: TUBES and LINES: None. LUNGS: Low lung volumes. Mild patchy bibasilar opacities. No evidence of lobar consolidation or pulmonary edema. PLEURA: No pleural effusion or pneumothorax. HEART AND MEDIASTINUM: The cardiomediastinal silhouette is unremarkable. There are atherosclerotic calcifications within the aorta. BONES AND SOFT TISSUES: No acute osseous abnormality. UPPER ABDOMEN: No free air under the diaphragm. IMPRESSION: Low lung volumes with patchy bibasilar opacities, which may reflect atelectasis or early pneumonia in the appropriate clinical setting. Follow-up chest radiograph is suggested to assess for resolution. Signed by: Dr. Rory Hand MD on 10/23/2018 1:17 PM Dictated By: RORY HAND MD [id number] Transcribed By: CHANEL on 10/23/18 1317 COPY TO: SHAGUFTA HANNA MD
--- OUTSIDE RECORDS SUMMARY | 2018-10-23 20:21 | XMS REPORT | Clinical Summary ---
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 POC glucose 217 (H) 65 - 100 mg/dL [facility] [place] Comment: PATHOLOGY AND Meter ID: [id number] GENOMIC MEDICINE Training Development Manager: Loretta Magana Performing Organization Address City/State/Zipcode Phone Number [facility] [place] [address] [place] [address] PATHOLOGY AND GENOMIC MEDICINE * XR Chest [...] consistent with a chronic left adrenal hematoma. [facility]-[id number] Procedure Note Hm Interface, Radiology Results Incoming [...] consistent with a chronic left adrenal hematoma. [facility]-[id number] Performing Organization Address City/[facility]/Zipcode Phone Number [facility] [address] [place] [address] * Estimated GFR (02/08/2018 7:40 AM CDT) Only the most recent of 5 results within the time period is included. GFR Non Af Amer >90 mL/min/1.73 m2 [facility] [place] [place] PATHOLOGY AND GENOMIC MEDICINE GFR Af Amer >90 mL/min/1.73 m2 [facility] [place] Comment: PATHOLOGY AND Chronic kidney [...] specimen Performing Organization Address City/State/Zipcode Phone Number [facility] [place] [place] [address] [place] [address] PATHOLOGY AND GENOMIC MEDICINE * CBC with platelet and differential (02/08/2018 7:40 AM CDT) Only the most recent of 4 results within the time period is included. WBC 7.4 4.2 - 11.0 k/uL [facility] [place] PATHOLOGY AND GENOMIC MEDICINE RBC 4.27 4.04 - 5.86 m/uL [facility] [place] [place] PATHOLOGY AND GENOMIC MEDICINE HGB 12.0 11.5 - 15.3 g/dL [facility] [place] PATHOLOGY AND GENOMIC MEDICINE HCT 37.5 34.0 - 45.0 % [facility] [place] [place]OLOGY AND GENOMIC MEDICINE MCV 87.8 80.0 - 98.0 fL [facility] [place] PATHOLOGY AND GENOMIC MEDICINE MCH 28.1 27.0 - 34.0 pg [facility] [place] PATHOLOGY AND GENOMIC MEDICINE MCHC 32.0 31.5 - 36.5 g/dL [facility] [place] PATHOLOGY AND GENOMIC MEDICINE RDW - SD 52.9 (H) 37.0 - 51.0 fL [facility] [place]OLOGY AND GENOMIC MEDICINE MPV 10.5 (H) 7.4 - 10.4 fL [facility] [place]OLOGY AND GENOMIC MEDICINE Platelet count 231 150 - 400 k/uL [facility] [place] [place] PATHOLOGY AND GENOMIC MEDICINE Nucleated RBC 0.00 /100 WBC [facility] [place] [place] PATHOLOGY AND GENOMIC MEDICINE Neutrophils 76.0 (H) 36.0 - 66.0 % [facility] [place] [place]OLOGY AND GENOMIC MEDICINE Lymphocytes 15.0 (L) 24.0 - 44.0 % [facility] [place]OLOGY AND GENOMIC MEDICINE Monocytes 7.8 (H) 0.0 - 6.0 % [facility] [place] [place] PATHOLOGY AND GENOMIC MEDICINE Eosinophils 0.5 0.0 - 6.0 % [facility] [place] [place] PATHOLOGY AND GENOMIC MEDICINE Basophils 0.4 0.0 - 1.2 % [facility] PATHOLOGY AND GENOMIC MEDICINE Immature granulocytes 0.3 0.0 - 1.0 % [facility] [place] [place]OLOGY AND GENOMIC MEDICINE Specimen Blood Performing Organization Address City/[facility] [place] [address] PATHOLOGY [facility] * Phosphorus level (02/08/2018 7:40 AM CDT) Only the most recent of 3 results within the time period is included. Phosphorus 1.8 (L) 2.4 - 4.5 mg/dL [facility] PATHOLOGY AND GENOMIC MEDICINE Specimen Plasma specimen Performing Organization Address City/[facility] [place] [address] PATHOLOGY [facility] * Basic metabolic panel (02/08/2018 7:40 AM CDT) Only the most recent of 4 results within the time period is included. Sodium 138 135 - 150 mEq/L [facility] DEPARTMENT OF PATHOLOGY AND GENOMIC MEDICINE Potassium 4.1 3.5 - 5.0 mEq/L [facility] [place] PATHOLOGY AND GENOMIC MEDICINE Chloride 100 98 - 112 mEq/L [facility] [place] [place] OF PATHOLOGY AND GENOMIC MEDICINE CO2 24 24 - 31 mmol/L [facility] [place] [place] PATHOLOGY AND GENOMIC MEDICINE Anion gap 14@ANIO 7 - 15 mEq/L [facility] [place] [place] PATHOLOGY AND GENOMIC MEDICINE BUN 21 (H) 7 - 18 mg/dL [facility] [place] [place] PATHOLOGY AND GENOMIC MEDICINE Creatinine 0.60 0.50 - 0.90 mg/dL [facility] [place] PATHOLOGY AND GENOMIC MEDICINE Glucose 168 (H) 65 - 100 mg/dL [facility] [place] [place] PATHOLOGY AND GENOMIC MEDICINE Calcium 9.6 8.8 - 10.2 mg/dL [facility] [place] [place] PATHOLOGY AND GENOMIC MEDICINE Specimen Plasma specimen Performing Organization Address City/State/Zipcode Phone Number [place] [address] [place] [address] PATHOLOGY AND GENOMIC MEDICINE * Arterial blood gas (02/07/2018 5:01 AM CDT) Only the most recent of 3 results within the time period is included. Training Development Manager [id number] [facility] [place] [place]OLOGY AND GENOMIC MEDICINE Collection site LRA [facility] [place] PATHOLOGY AND GENOMIC MEDICINE O2 therapy HFNC [facility] [place] PATHOLOGY AND GENOMIC MEDICINE pH, arterial 7.580 (HH) 7.350 - 7.450 units [facility] [place] [place] Comment: PATHOLOGY AND Results called to and read GENOMIC MEDICINE back by FRANK GUALLPA at02/07/201805:10 by _IV_. pCO2, arterial 24.8 (LL) 35.0 - 45.0 mmHg [facility] [place] [place] Comment: PATHOLOGY AND Results called to and read GENOMIC MEDICINE back by FRANK GUALLPA at02/07/201805:10 by _IV_. pO2, arterial 176.0 (H) 80.0 - 90.0 mmHg [facility] [place] PATHOLOGY AND GENOMIC MEDICINE O2 saturation, arterial >100.0 95.0 - 100.0 % [facility] [place] OF PATHOLOGY AND GENOMIC MEDICINE Base excess, arterial 1.3 mEq/L [facility] [place] PATHOLOGY AND GENOMIC MEDICINE Bicarbonate 23.2 21.0 - 28.0 mEq/L [facility] [place] OF PATHOLOGY AND GENOMIC MEDICINE O2 content 17.1 VOL% [facility] [place] OF PATHOLOGY AND GENOMIC MEDICINE FiO2, inspired O2% 32.0 % [facility] [place] OF PATHOLOGY AND GENOMIC MEDICINE Inspired O2 l/m 3 L/min [facility] [place] PATHOLOGY AND GENOMIC MEDICINE Carboxyhemoglobin 0.2 0.0 - 1.4 % [facility] [place] [place] Comment: PATHOLOGY AND Reference Ranges: GENOMIC MEDICINE Carboxyhemoglobin Non smoker: 0.0 - 2.0% Smoker: 2.1 - 5.0% Heavy smoker: 5.1 - 9% Methemoglobin <0.0 0.0 - 1.0 % [facility] [place] OF PATHOLOGY AND GENOMIC MEDICINE Hemoglobin, blood gas 12.0 12.0 - 16.0 g/dL [facility] [place] OF PATHOLOGY AND GENOMIC MEDICINE pO2, A-a 24.5 mmHg [facility] [place] PATHOLOGY AND GENOMIC MEDICINE Specimen Blood Performing Organization Address [facility] [place] [address] PATHOLOGY AND GENOMIC MEDICINE * Lactic acid level (02/07/2018 3:20 AM CDT) Only the most recent of 5 results within the time period is included. Lactic acid 1.8 0.5 - 2.2 mmol/L [facility] [place] [place]OLOGY AND GENOMIC MEDICINE Specimen Blood Performing Organization Address [facility] [place] [address] PATHOLOGY AND GENOMIC MEDICINE * Magnesium level (02/06/2018 4:16 AM CDT) Magnesium 1.80 1.60 - 2.40 mg/dL [facility] [place] [place] PATHOLOGY AND GENOMIC MEDICINE Specimen Plasma specimen Performing Organization Address [facility] [place] [address] PATHOLOGY AND GENOMIC MEDICINE * Hepatic function panel (02/06/2018 4:16 AM CDT) Albumin 2.6 (L) 3.5 - 5.0 g/dL [facility] [place] [place] PATHOLOGY AND GENOMIC MEDICINE Total bilirubin 0.4 0.2 - 1.2 mg/dL [facility] [place] PATHOLOGY AND GENOMIC MEDICINE Bilirubin direct <0.2 0.0 - 0.4 mg/dL [facility] [place] OF PATHOLOGY AND GENOMIC MEDICINE Alkaline phosphatase 93 0 - 104 U/L [facility] [place] [place] PATHOLOGY AND GENOMIC MEDICINE Protein 6.8 6.3 - 8.3 g/dL [facility] [place] [place] OF PATHOLOGY AND GENOMIC MEDICINE ALT 15 5 - 50 U/L [facility] [place] OF PATHOLOGY AND GENOMIC MEDICINE AST 32 10 - 35 U/L [facility] [place] OF PATHOLOGY AND GENOMIC MEDICINE Specimen Plasma specimen Performing Organization Address City/[facility]/Zipcode Phone Number [address] [place] [address] PATHOLOGY AND GENOMIC MEDICINE * Troponin (02/05/2018 8:56 PM CDT) Only the most recent of 3 results within the time period is included. Troponin <0.30 0.00 - 0.30 ng/mL [facility] [place] Comment: PATHOLOGY AND 0.11 - 1.49 GENOMIC MEDICINE ng/mlMay indicate increased risk of acute coronary syndrome. >=1.5 ng/ml Consistent with acute myocardial infarction. The diagnostic value of a single normal or non-diagnostic result is questionable.Serial samples at 2-6 hour intervals are required to rule out acute myocardial injury. Specimen Plasma specimen Performing Organization Address [facility] Phone Number [address] [place] [address] PATHOLOGY AND GENOMIC MEDICINE * Respiratory pathogen panel (02/05/2018 6:05 PM CDT) Respiratory pathogen Positive for [facility] DEPARTMENT OF panel Rhinovirus/Enterovirus PATHOLOGY AND [...] Specimen Nares - Right Performing Organization Address City/[facility]/Zipcode Phone Number [facility] DEPARTMENT OF [address] [place] [address] PATHOLOGY AND GENOMIC MEDICINE * Lactic acid level, SEPSIS - Now and repeat 2x every 3 hours (02/05/2018 2:40 PM CDT) Only the most recent of 2 results within the time period is included. Lactic acid 4.1 (HH) 0.5 - 2.2 mmol/L [facility] [place] [place] Comment: PATHOLOGY AND Results called to and read [employer] MEDICINE back by JUANCARLOS WARE / [employer] [employer] 15:2406 JGP Specimen Blood Performing Organization Address City/[facility]/Zipcode Phone Number [facility] [place] [address] [place] [address] PATHOLOGY AND GENOMIC MEDICINE * Echocardiogram complete [...] City/State/Zipcode Phone Number [facility] [address] [place] [address] * CT Angiogram Pe Chest (02/05/2018 12:11 [...] is seen at the lower lung bases. [facility]-[id number] Procedure Note Interface, Radiology Results Incoming - [...] is seen at the lower lung bases. [id number] Performing Organization Address City/State/Zipcode Phone Number [facility] [address] [place] [address] * CT Head Wo Contrast (02/05/2018 12:11 PM CDT) Narrative Performed At EXAMINATION: CT HEAD WO CONTRAST [facility] CLINICAL HISTORY: HEADACHEACUTESEVERETHUNDERCLAPWORST DAMIAN OF LIFE [...] which is improved compared with August year [id number] Procedure Note Interface, Radiology Results Incoming - [...] is improved compared with August this year [facility]-[id number] Performing Organization Address [facility] Phone Number [facility] [address] [place] [address] * Blood culture, aerobic & anaerobic (02/05/2018 9:56 AM CDT) Only the most recent of 2 results within the time period is included. Blood culture isolate No growth after 5 days of [facility] DEPARTMENT OF incubation. PATHOLOGY AND Comment: GENOMIC MEDICINE Specimen Information Specimen Source: Blood Specimen Site: Hand Right Specimen Blood Performing Organization Address [facility] Hospital[facility] Phone Number [facility] OF [address] [place] [address] PATHOLOGY AND GENOMIC MEDICINE * Prothrombin time with INR (02/05/2018 9:51 AM CDT) Prothrombin time 14.7 12.0 - 15.0 sec [facility] [place]OLOGY AND GENOMIC MEDICINE INR 1.13 (H) 0.92 - 1.12 [facility] [place] Comment: PATHOLOGY AND For patients on anticoagulant GENOMIC MEDICINE therapy, reference ranges below: Indication: INR Value Treatment of Venous Thrombosis, 2.0-3.0 pulmonary emboli, or prophylaxis of a venous thrombosis, or systemic emboli. High dose, high risk patients 3.0-4.5 with mechanical valves. NOTE:INR values over 3.0 are sometimes associated with gastrointestinal hemorrhage, especially values over 4.0. Specimen Blood Performing Organization Address City/[facility] Phone Number [facility] [address] [place] [address] PATHOLOGY AND GENOMIC MEDICINE * B natriuretic peptide (02/05/2018 9:51 AM CDT) BNP 214 (H) 0 - 100 pg/mL [facility] [place] PATHOLOGY AND GENOMIC MEDICINE Specimen Blood Performing Organization Address [facility] Phone Number [place] [address] [place] [address] PATHOLOGY AND GENOMIC MEDICINE * Comprehensive metabolic panel (02/05/2018 9:51 AM CDT) Sodium 138 135 - 150 mEq/L [facility] [place] PATHOLOGY AND GENOMIC MEDICINE Potassium 4.8 3.5 - 5.0 mEq/L [facility] [place] OF PATHOLOGY AND GENOMIC MEDICINE Chloride 101 98 - 112 mEq/L [facility] [place] OF PATHOLOGY AND GENOMIC MEDICINE CO2 21 (L) 24 - 31 mmol/L [facility] [place] OF PATHOLOGY AND GENOMIC MEDICINE Anion gap 16@ANIO (H) 7 - 15 mEq/L [facility] [place] OF PATHOLOGY AND GENOMIC MEDICINE BUN 30 (H) 7 - 18 mg/dL [facility] [place] OF PATHOLOGY AND GENOMIC MEDICINE Creatinine 0.80 0.50 - 0.90 mg/dL [facility] [place] OF PATHOLOGY AND GENOMIC MEDICINE Glucose 160 (H) 65 - 100 mg/dL [facility] [place] OF PATHOLOGY AND GENOMIC MEDICINE Calcium 9.7 8.8 - 10.2 mg/dL [facility] [place] OF PATHOLOGY AND GENOMIC MEDICINE Protein 7.7 6.3 - 8.3 g/dL [facility] [place] OF PATHOLOGY AND GENOMIC MEDICINE Albumin 3.3 (L) 3.5 - 5.0 g/dL [facility] [place] OF PATHOLOGY AND GENOMIC MEDICINE A/G ratio 0.8 0.7 - 3.8 [facility] [place] OF PATHOLOGY AND GENOMIC MEDICINE Alkaline phosphatase 109 (H) 0 - 104 U/L [facility] [place] OF PATHOLOGY AND GENOMIC MEDICINE AST 25 10 - 35 U/L [facility] [place] OF PATHOLOGY AND GENOMIC MEDICINE ALT 16 5 - 50 U/L [facility] [place] OF PATHOLOGY AND GENOMIC MEDICINE Total bilirubin 0.8 0.2 - 1.2 mg/dL [facility] [place] OF PATHOLOGY AND GENOMIC MEDICINE Specimen Plasma specimen Performing Organization Address [facility] Phone Number [place] [address] [place] [address] PATHOLOGY AND GENOMIC MEDICINE * Urinalysis screen and microscopy, with reflex to culture (02/05/2018 9:50 AM CDT) Specimen site [place] [facility] [place]OLOGY AND GENOMIC MEDICINE Color, UA Yellow [facility] [place] OF PATHOLOGY AND GENOMIC MEDICINE Appearance, UA Slightly-Cloudy [facility] [place] OF PATHOLOGY AND GENOMIC MEDICINE Specific gravity, UA 1.014 1.001 - 1.035 [facility] [place] OF PATHOLOGY AND GENOMIC MEDICINE pH, UA 8.0 5.0 - 8.5 [facility] [place] OF PATHOLOGY AND GENOMIC MEDICINE Protein, UA 1+ (A) Negative [facility] [place] OF PATHOLOGY AND GENOMIC MEDICINE Glucose, UA Negative Negative [facility] [place] OF PATHOLOGY AND GENOMIC MEDICINE Ketones, UA Negative Negative [facility] [place] OF PATHOLOGY AND GENOMIC MEDICINE Bilirubin, UA Negative Negative [facility] [place] OF PATHOLOGY AND GENOMIC MEDICINE Blood, UA Negative Negative [facility] [place] OF PATHOLOGY AND GENOMIC MEDICINE Nitrite, UA Negative Negative [facility] [place] OF PATHOLOGY AND GENOMIC MEDICINE Urobilinogen, UA 4.0 (A) <2.0 [facility] [place] OF PATHOLOGY AND GENOMIC MEDICINE Leukocyte esterase, UA Trace (A) Negative [facility] [place] OF PATHOLOGY AND GENOMIC MEDICINE Epithelial cells, UA Few /HPF [facility] [place] OF PATHOLOGY AND GENOMIC MEDICINE WBC, UA 13 (H) 0 - 5 /HPF [facility] [place] OF PATHOLOGY AND GENOMIC MEDICINE RBC, UA 2 0 - 5 /HPF [facility] [place] OF PATHOLOGY AND GENOMIC MEDICINE Bacteria, UA Trace None seen [facility] [place] OF PATHOLOGY AND GENOMIC MEDICINE Yeast, UA None seen [facility] [place] OF PATHOLOGY AND GENOMIC MEDICINE Yeast with pseudohyphae, None seen [facility] [place] OF UA PATHOLOGY AND GENOMIC MEDICINE Specimen Urine Performing Organization Address City/State/Zipcode Phone Number [facility] [place] [address] [place] [address] PATHOLOGY AND GENOMIC MEDICINE * Gram stain (02/05/2018 9:50 AM CDT) Gram stain result Rare WBC's [facility] DEPARTMENT OF Few Gram positive cocci in PATHOLOGY AND pairs GENOMIC MEDICINE Comment: Specimen Information Specimen Source: Urine Specimen Site: [place] Specimen Urine - [place] Performing Organization Address City/State/Zipcode Phone Number [facility] DEPARTMENT OF [address] [place] [address] PATHOLOGY AND GENOMIC MEDICINE * Urine culture (02/05/2018 9:50 AM CDT) Urine culture isolate Mixed Gram positive alexandra [facility] DEPARTMENT OF 10-1 cfu/ml PATHOLOGY AND (A) GENOMIC MEDICINE Comment: Specimen Information Specimen Source: Urine Specimen Site: [place] Specimen Urine - [place] Performing Organization Address [facility] Phone Number [facility] DEPARTMENT OF [address] [place] [address] PATHOLOGY AND GENOMIC MEDICINE * ECG ED Preliminary Interpretation - NOT AN ORDER (02/05/2018 9:41 AM CDT) Narrative Performed At Isac Velasquez MD 02/05/20189:41 AM ECG ED Preliminary Interpretation - Not an Order Performed by: ISAC VELASQUEZ Authorized by: ISAC VELASQUEZ ECG reviewed by ED Physician in the absence of a nursing professor: yes Previous ECG: Previous ECG:Compared to current Interpretation: Interpretation: normal Rate: ECG rate:108 ECG rate assessment: tachycardic Rhythm: Rhythm: sinus rhythm and sinus tachycardia Ectopy: Ectopy: none QRS: QRS axis:Normal Conduction: Conduction: normal ST segments: ST segments:Normal T waves: T waves: normal * ECG 12 lead (02/05/2018 9:38 AM CDT) Ventricular rate 108 [facility] Atrial rate 108 [facility] AR interval 188 [facility] QRSD interval 106 [facility] QT interval 356 [facility] QTC interval 477 [facility] P axis 1 77 [facility] QRS axis 1 -29 [facility] T wave axis 60 [facility] EKG impression Sinus tachycardia-Inferior [facility] MUSE infarct , age undetermined-Abnormal ECG-No previous ECGs available- Performing Organization Address City/[facility] Phone Number [facility] [address] [place] [address] * INTUBATION (02/05/2018 8:58 AM CDT) Narrative Performed At Isac Velasquez MD 02/05/2018 11:28 AM Intubation Performed by: ISAC VELASQUEZ Authorized by: ISAC VELASQUEZ Consent: Consent obtained:Emergent situation Consent given by: son. Risks discussed:Aspiration, bleeding, , brain injury, dental trauma, hypoxia, laryngeal injury and pneumothorax Alternatives discussed:No treatment, delayed treatment, alternative treatment, observation and referral [place] protocol: Procedure explained and questions answered to [...] Performed At EXAMINATION:XR ABDOMEN 1 VW PORTABLE [facility] CLINICAL HISTORY:feeding tube placement COMPARISON:None. IMPRESSION: Gastrostomy tube is located in the gastric fundus. Contrast was administered which opacifies the gastric lumen and demonstrates mild gastroesophageal reflux. Bowel gas pattern is nonobstructive. There is no gross intra-abdominal free air. Eggshell calcification related to the left adrenal gland noted in the left upper abdomen. There is vascular calcification. [facility]-[id number] Procedure Note Interface, Radiology Results Incoming - [...] left upper abdomen. There is vascular calcification. [facility]-[id number] Performing Organization Address City/State/Zipcode Phone Number [facility] [address] [place] [address] * Feeding tube replacement (12/18/2017 8:13 AM CDT) Narrative Performed At Isac Velasquez MD 12/18/20172:14 PM GI Tubes Performed by: ISAC VELASQUEZ Authorized by: ISAC VELASQUEZ Consent: Consent obtained:Emergent situation Consent given by:Healthcare agent [place] protocol: Patient identity confirmed:Arm band Pre-procedure details: [...] Medicare [place], [place] PART A AND B [phone] [id number] (Home) [place] [address] Advance Directives Patient has advance care planning documents on file. For more information, shonda ruiz contact: Vladimir Portillo [address] [place] [address]
[2018-10-23 21:36] LABS: CREATINE KINASE MB 0.3 ng/mL (0-5.0)
--- NOTE | 2018-10-23 22:30 | NUR ---
RECEIVED ORDERS FOR ONE MORE LITER BOLUS R/T LACTIC = 53.9 AND TO REPEAT LACTIC EVERY 4 HOURS UNTIL NORMAL. ALSO ORDER RECEIVED TO CHANGE PTS STATUS TO ICU. RESIDENTIAL SERVICE TECHNICIAN NOTIFIED.
[2018-10-23 22:59] VITALS: BP 152/64
[2018-10-23 23:00] VITALS: BP 152/64
[2018-10-23] MEDS: ALBUTEROL SULF 0.083% NEB SOLN 3 ML NEB NEB SCH (23:00)
[2018-10-23 23:30] VITALS: BP 143/77
[2018-10-24] VITALS (27 sets, daily range): BP systolic 106–176; BP diastolic 43–124
[2018-10-24] MEDS: SODIUM CHLORIDE 0.9% 1000ML 1,000 ML IV SCH ×3 (00:14→09:50)
[2018-10-24] MEDS: CEFTRIAXONE SOD 1 GM/NS 50 ML 50 ML IV SCH ×2 (00:20→21:44)
[2018-10-24] MEDS: ALBUTEROL SULF 0.083% NEB SOLN 3 ML NEB NEB SCH ×3 (02:20→11:15)
[2018-10-24] MEDS: IPRATROPIUM BROMIDE 0.02% 2.5 ML NEB NEB SCH ×3 (02:20→07:01)
[2018-10-24 05:26] LABS: BASOPHILS % 0.3 % (0.0-1.0); EOSINOPHILS % 0.1 % (0.0-6.0); HEMATOCRIT 37.1 % (34.2-44.1); HEMOGLOBIN 11.8 g/dL (12.0-16.0); LYMPHOCYTES # (AUTO) 0.4 (1.0-3.2); LYMPHOCYTES % 4.5 % (18.0-39.1); MEAN CORPUSCULAR HGB CONC 31.8 g/dL (31-35); MEAN CORPUSCULAR VOLUME 97.4 fL (81-99); MONOCYTES # (AUTO) 0.3 (0.2-0.8); MONOCYTES % 3.3 % (4.4-11.3); NEUTROPHILS # (AUTO) 8.7 (2.1-6.9); NEUTROPHILS % 91.3 % (38.7-80.0); PLATELET COUNT 181 x10e3/uL (140-360); RED BLOOD COUNT 3.81 x10e6/uL (3.6-5.1); RED CELL DISTRIBUTION WIDTH 13.5 % (11.7-14.4)
[2018-10-24 06:13] LABS: ANION GAP 14.1 mmol/L (8-16); BLOOD UREA NITROGEN 25 mg/dL (7-26); BUN/CREATININE RATIO 31 (6-25); CALCIUM 7.7 mg/dL (8.4-10.2); CARBON DIOXIDE 22 mmol/L (22-29); CHLORIDE 106 mmol/L (98-107); EST GLOMERULAR FILTRATION RATE > 60 ML/MIN (60-); GLUCOSE 92 mg/dL (74-118); POTASSIUM 3.1 mmol/L (3.5-5.1); SODIUM 139 mmol/L (136-145)
[2018-10-24 06:20] LABS: CREATINE KINASE MB 1.2 ng/mL (0-5.0)
--- NOTE | 2018-10-24 06:36 | Diagnostic Imaging Report ---
EXAMINATION: CHEST SINGLE (PORTABLE) INDICATION: Breathing problems. COMPARISON: 10/23/2018. FINDINGS: TUBES and LINES: None. LUNGS: Mild bilateral low lung volumes. Bibasilar subsegmental atelectasis. PLEURA: No pleural effusion or pneumothorax. HEART AND MEDIASTINUM: The cardiac silhouette is mildly enlarged.. There are atherosclerotic calcifications within the aorta. BONES AND SOFT TISSUES: No acute osseous abnormality. UPPER ABDOMEN: No free air under the diaphragm. Note is made of a large, 5.2 cm calcific density projected on the left upper quadrant, unchanged. Etiology is uncertain, possibly calcified splenic lesion. IMPRESSION: Bibasilar subsegmental atelectasis. Note is made of a large, 5.2 cm calcific density projected on the left upper quadrant, unchanged. Etiology is uncertain, possibly calcified splenic lesion. This could be further evaluated with ultrasound of left upper quadrant of the clinically warranted. Signed by: Dr. Ange Case M.D. on 10/24/2018 6:33 AM
[2018-10-24] MEDS: CLINDAMYCIN PHOS 900MG/ 50ML 50 ML IV SCH ×3 (08:10→22:13)
[2018-10-24] MEDS ORDERED: POTASSIUM CHLORIDE 20MEQ/15ML UDC PEG ONE (14:15)
[2018-10-24] MEDS: METOPROLOL TARTRATE 25 MG TAB PO SCH (14:48)
--- NOTE | 2018-10-24 15:10 | NUR ---
Taken for CT Scan of Brain w/o contrast
--- NOTE | 2018-10-24 15:37 | Diagnostic Imaging Report ---
CT BRAIN WO HISTORY: Altered mental status COMPARISON: None. Technique: Noncontrast axial scans were obtained from skull base to the vertex. Coronal and sagittal reconstructions obtained from the axial data. One or more of the following dose reduction techniques were used: Automated exposure control, adjustment of the mA and/or kV according to patient size, and/or utilization of iterative reconstruction technique. Beam hardening artifacts obscure some details. DISCUSSION: Scalp/Skull: Unremarkable. Brain sulci: Prominent. Ventricles: Compensatory dilatation. Extra-axial spaces: No masses or fluid collections. Carotid siphon calcifications are present. Parenchyma: Severe bilateral deep white matter hypodensity is likely chronic microvascular ischemic change. 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 Old bilateral thalamic lacunar infarcts are also present. Focal areas of bilateral upper perirolandic encephalomalacia, left greater than right, are likely from remote infarcts. Otherwise, no masses, hemorrhage, or large vascular territory acute infarct. Dural sinuses: No abnormal densities. Sellar/Suprasellar region: Intact. Skull base: Intact. Incidental findings: Moderate left sphenoid sinus mucosal thickening is likely chronic; there is surrounding sclerosis. IMPRESSION: 1. No definite acute intracranial abnormalities. 2. Severe supratentorial chronic microvascular ischemic change. Generalized cerebral volume loss. 3. 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 Associated old bilateral thalamic lacunar infarcts. Old bilateral upper perirolandic cortical infarcts, left greater than right. Chronic/remote embolic ischemia should be considered. Signed by: Dr. Bin Felder M.D. on 10/24/2018 3:33 PM
--- NOTE | 2018-10-24 15:39 | NUR ---
CASE MANAGEMENT INITIAL ASSESSMENT Signing Agent to bedside to discuss plan of care with patient/family. CM/SW role and care transitions discussed. Anticipated discharge plan discussed along with duration of care. CM/SW discussed patients right to make decisions in care. CM/SW work hours given. Patient lives: IN [facility] ([facility]) Admit/Transfer: ER Hospital/ER visits since last admit:NONE POA/Emergency contact: LESTER PORTILLO [phone] Current/Previous Home Health: NONE PCP/Follow-up Care: [facility] Current/Previous DME: NONE Medications (referring to index hospitalization or the first time you were in the hospital) a. Were changes made in your medications when you were in the hospital on [date of index hospitalization]? Yes No Not sure Explain: Note: If no or not sure, please skip to question d b. Did you understand the changes? Yes No Explain: c. Were you able to obtain your new medications right away? Yes No n/a SNF only Explain: d. Were you able to take your medications like the doctor wanted you to? MEDS GIVEN IN [facility] e. Did the hospital give you an accurate, easy to understand list of medications when you left? Scale of 1-10 how comfortable does patient feel with disease management in outpatient setting: MANAGED AT [facility] Other Services: NONE Employment Status: RETIRED Areas of Concerns: NONE; PLAN PER SONVEL IS TO RETURN TO [facility] UPON DISCHARGE Referral Needs: NONE Education Needs: NONE IMM/HAGER given and signed (if applicable): IMM ON ADMIT Goal for discharge: TO RETURN TO [facility] UPON DISCHARGE CM/SW left business card at the bedside with contact information. Name and number was also written on the patients whiteboard. Patient verbalized understanding of discussion. CM will follow-up with ongoing discharge and transition of care needs.
--- NOTE | 2018-10-24 17:21 | NUR ---
Nutrition Intervention Note RD Recommendation(s) for Physician: -Rec to liberalize diet to regular; diet texture per REVENUE RESEARCH ANALYST -Rec Ensure Enlive BID (700kcal, 40g protein) to promote protein-calorie intake -Rec continuous TF with Jevity 1.2 @55mL/hr for 10hr (8pm-6am) via PEG, providing 660kcal, 30g protein, and 444mL water -Rec 20mL/hr of free water flushes for 10hr; additional per MD discretion -Check labs, weight and GI tolerance Plan of Care: RD following, monitoring for tolerance and adequacy, TF rec Nutrition reason for involvement: RN consult RD Assessment 10/24 Chart reviewed. 83yo F, who was admitted for aspiration PNA. Pt came from a group home with PEG tube POA. Per GIORGIO Gutierrez, pt ate 50% of her oatmeal and was coughing after drinking milk this AM. Pt was able to tolerate soft foods alright. Per son, pt was on a pureed diet with Ensure at the group home. Pt also got supplemental EN (bolus feeding of 4x 250cc Fibersource) through PEG at night time if her PO intake during the day was low. No GI complains noted. Per son, pt was having significant weight loss due to ill-fitting denture about 8 months ago. Since the denture was removed, pt has been maintaining her weight at 110lb. REVENUE RESEARCH ANALYST has been consulted. Spoke to Dr. Corey regarding RD recommendation. Dr. Corey agreed with plan; order has been placed. Will continue to monitor and follow. Principal Problems/Diagnoses: Aspiration PNA PMH: HTN, IN, CVA, hypothyroidism, dementia, stroke, CVA w/ R side weakness GI: abdomen soft, non-tender, round, LBM 10/24 Skin: No pressure wound noted Labs: (10/24) K 3.1 L, Ca 7.7 L Meds: abx, NaCl Ht: 63in (per observation, no weight taken) Wt: 113.31lb BMI: 20kg/m2 IBW: 115lb Malnutrition Evaluation (10/24/2018) The patient does not meet criteria for a specified degree of malnutrition at this time. Will re-evaluate at follow-up as appropriate. Nutrition Prescription (Diet Order): cardiac diet Estimated Nutritional Needs: Calories: 1300 1820kcal (25-35kcal/kg/d) Weight used: Current BW Protein: 52 78g (1-1.5g/kg/d) Weight used: Current BW Diet Adequacy: Not meeting calorie needs, Not meeting protein needs Diet Education Needs Assessment: Diet education not indicated; patient on regular diet. Nutrition Care Level: mod Nutrition Diagnosis: Inadequate oral intake related to chronic illness as evidenced by pt requiring ONS and EN through PEG while at group home. Goal: Patient will meet 75-100% of estimated needs by follow up Progress: N/A Interventions: Texture-modified diet, Commercial beverage, Composition, Rate, Route, Recommended Modifications, Collaboration with other providers Monitoring/Evaluation: Total energy intake, Total protein intake, Formula/Solution, Modified diet, Liquid supplement, Weight change Signed: Key Hyman MS, RD, LD
--- NOTE | 2018-10-24 19:34 | NUR ---
CALLED DR BONILLA ANSWERING SERVICE SPOKE TO SAMARITAN TO INFORM OF PATIENT CONSULTATION. ORDERING MD DR ARCHER NEEDING CONSULT FOR DR BONILLA DX SEPSIS
--- NOTE | 2018-10-24 19:41 | NUR ---
DR BONILLA RETURNED PHONE CALL. INFORMED HIM OF PATIENT DX AND TIME OF ORDER WAS PLACED FOR CONSULT. WAS INFORMED THAT HE WILL SEE PATIENT IN AM
[2018-10-24] MEDS: LEVALBUTEROL HCL SOLN NEBU 0.63 MG/3 ML NEB INH SCH (20:25)
--- NOTE | 2018-10-24 20:52 | History and Physical ---
CHIEF COMPLAINT: Altered mental status. HISTORY OF PRESENT ILLNESS: This is an 83-year-old female, who has baseline dementia, also history of CVA in the past about 3 years ago, and according to the son, who progressively has gotten worse. Currently, lives in a correction due to medical debilitation and was brought in from [facility] due to underlying metabolic encephalopathy and confusion. Information being obtained is by the son who I spoke with him over the phone. The patient's son reports that over the last several days he has noted that his mom was not eating as much as usual. He always attributes this to some sort of infection, as a urinary tract infection. He reports no fever at home. No cough, no congestion. No reports of any chest pain according to him. He was told yesterday by the correction that his mother had too much fluid around her "lungs" and was told to come to the hospital for further evaluation. The patient was brought in here to [facility] for further management and care. The patient was found to have underlying sepsis due to UTI and possible aspiration pneumonia. The patient was seen and evaluated at bedside in the ICU. Currently, she is doing well. She is stable. She is not talking, but I believe this is at her baseline. REVIEW OF SYSTEMS: According to the son, she has some confusion, dementia, decreased oral intake. Unable to obtain the rest of the 14-point review of systems as the patient has baseline dementia. ALLERGIES: DAIRY, PENICILLIN, SULFA, AND EGG. HOME MEDICATIONS: Please see med reconciliation form. PAST MEDICAL HISTORY: She has Alzheimer's and has baseline dementia, history of urinary tract infections in the past, hypotension, history of CVAs in the past. PAST SURGICAL HISTORY: Reports none. FAMILY HISTORY: Hypertension and diabetes. SOCIAL HISTORY: Lives in a correction. No report of drugs, alcohol, or any smoking history. LABS: White count on admission is 16.2, now 9.5; hemoglobin 11.8; hematocrit 37; platelets of 181. Chemistry, sodium 139, potassium 3.1, chloride 106, bicarb 23, anion gap of 14, BUN is 25, creatinine is 0.8, glucose is 92. On admission, lactic acid was 46 then went to 23.9 then 22.6, calcium is 7.7. LFTs were normal. Albumin was 2.9. Troponins were negative. Urinalysis consistent with UTI. MICROBIOLOGY: Urine cultures were positive for gram-negative rods. Sputum cultures were positive for gram-negative rods. Blood cultures, no growth to date. IMAGING STUDIES: Chest x-ray, low lung volumes. Bibasilar opacities. Concerning for underlying aspiration pneumonia. Repeat chest x-ray this morning still shows similar findings. PHYSICAL EXAMINATION: VITAL SIGNS: Temperature 98.7, pulse is 122, respiratory rate is 18, blood pressure is 137/91, and saturating 100% on nasal cannula 2 L. GENERAL: She has baseline dementia, unoriented. HEENT: Head is normocephalic, atraumatic. Eyes, pupils are equal, round, and reactive to light bilaterally. Extraocular movements are intact bilaterally. Throat, no evidence of erythema or exudate in the posterior pharynx. Has poor dentition. NECK: Supple. Good range of motion throughout. PULMONARY: Clear to auscultation bilaterally. No wheezing. No rales. No rhonchi. No crackles appreciated. CARDIOVASCULAR: Positive S1, S2. No murmur, rub, or gallop appreciated. ABDOMEN: Soft, nondistended, nontender to palpation. Bowel sounds present. MUSCULOSKELETAL: Unable to assess, currently demented. NEUROLOGIC: Unable to assess, currently demented. SKIN: Intact. Warm to touch. Good cap refill. PSYCHIATRIC: Currently demented, unable to assess. EXTREMITIES: No edema. Good range of motion throughout. IMPRESSION: 1. Sepsis secondary to underlying urinary tract infection as well as aspiration pneumonia. 2. Urinary tract infection. 3. Aspiration pneumonitis. 4. Moderate protein-calorie malnutrition with a PEG tube. 5. Baseline dementia. 6. History of atrial fibrillation, on anticoagulation and rate control medications. 7. History of cerebrovascular accident in the past. PLAN: At this time, urine cultures were positive. Blood cultures, no growth. Sputum cultures were positive. Continue with IV antibiotics. ID was consulted. We are going to get a swallow evaluation as well as a modified barium swallow as indicated hopefully tomorrow. She does have a PEG tube, which we will go ahead and start her on tube feeds today. We will get nutrition evaluation as well. Lactic acid was still slightly elevated. We will get repeat labs including lactic acid from the morning. CT brain was never performed by the ER, which we will go ahead and get that as a complete workup for her encephalopathy. She is on Xarelto for history of AFib and that will be continued here for DVT prophylaxis as well. We are going to resume same home medications with no changes. Get PT and OT to work with the patient as well. I had a long discussion with the son, Clayton, by phone, in which I discussed overall plans of care and goals of care of his mother. At this time, he reports that he does have medical power of contracts attorney paperwork, which he will bring here to the hospital. He wants his mother to be DNR/DNI. This was verified also by the nursing staff. At this time, DNR/DNI had been placed into the charts as per his wishes. We will continue with symptomatic care for now and we will monitor very closely. I spent more than 40 minutes of critical care time on this case. MD LETICIA Pan/MAYA /[id number]
[2018-10-24] MEDS: RIVAROXABAN 15 MG TABLET PO SCH (21:44)
[2018-10-24] MEDS: NORTRIPTYLINE HCL 25 MG CAP PO SCH (21:44)
[2018-10-25] VITALS (16 sets, daily range): BP systolic 119–156; BP diastolic 51–86
[2018-10-25] MEDS: LEVALBUTEROL HCL SOLN NEBU 0.63 MG/3 ML NEB INH SCH ×3 (01:30→13:25)
[2018-10-25 04:44] LABS: BASOPHILS % 0.2 % (0.0-1.0); EOSINOPHILS % 0.2 % (0.0-6.0); HEMATOCRIT 30.9 % (34.2-44.1); HEMOGLOBIN 10.2 g/dL (12.0-16.0); LYMPHOCYTES # (AUTO) 0.3 (1.0-3.2); LYMPHOCYTES % 4.8 % (18.0-39.1); MEAN CORPUSCULAR HEMOGLOBIN 30.7 pg (28-32); MONOCYTES # (AUTO) 0.4 (0.2-0.8); MONOCYTES % 5.9 % (4.4-11.3); NEUTROPHILS # (AUTO) 5.3 (2.1-6.9); NEUTROPHILS % 88.4 % (38.7-80.0); PLATELET COUNT 146 x10e3/uL (140-360); RED BLOOD COUNT 3.32 x10e6/uL (3.6-5.1); RED CELL DISTRIBUTION WIDTH 13.5 % (11.7-14.4)
[2018-10-25 04:59] LABS: ANION GAP 11.5 mmol/L (8-16); BLOOD UREA NITROGEN 18 mg/dL (7-26); BUN/CREATININE RATIO 25 (6-25); CALCIUM 7.7 mg/dL (8.4-10.2); CARBON DIOXIDE 23 mmol/L (22-29); CHLORIDE 107 mmol/L (98-107); CREATININE, SERUM 0.71 mg/dL (0.57-1.11); EST GLOMERULAR FILTRATION RATE > 60 ML/MIN (60-); GLUCOSE 134 mg/dL (74-118); MEAN CORPUSCULAR VOLUME 93.1 fL (81-99); SODIUM 139 mmol/L (136-145)
[2018-10-25 05:02] LABS: POTASSIUM 2.5 mmol/L (3.5-5.1)
[2018-10-25] MEDS: CLINDAMYCIN PHOS 900MG/ 50ML 50 ML IV SCH (06:00)
[2018-10-25] MEDS: LEVOTHYROXINE SODIUM 88 MCG TAB PO SCH (07:55)
[2018-10-25 08:44] LABS: BAND NEUTROPHILS % (MANUAL) 1 %; EOSINOPHILS % (MANUAL) 1 % (0-7); LYMPHOCYTES % (MANUAL) 1 % (19-48); MONOCYTES % (MANUAL) 3 % (3.4-9.0); NEUTROPHILS % (MANUAL) 88 % (40-74)
[2018-10-25 08:46] LABS: ANISOCYTOSIS SLIGHT; PLATELET ESTIMATE SLIGHTLY DECREASED; PLATELET MORPHOLOGY COMMENT NORMAL; RBC MORPHOLOGY COMMENT NORMAL
[2018-10-25] MEDS: MULTIVITAMINS/MINERALS TAB PO SCH (09:00)
[2018-10-25] MEDS: METOPROLOL TARTRATE 25 MG TAB PO SCH ×2 (09:00→17:00)
[2018-10-25] MEDS: FUROSEMIDE 20 MG TAB PO SCH (09:00)
[2018-10-25] MEDS: LORATADINE 10 MG TAB PO SCH (09:00)
[2018-10-25] MEDS: LACTULOSE SYRUP 20 GM/30 ML UDC PO SCH (09:00)
[2018-10-25] MEDS ORDERED: POTASSIUM CHLORIDE 20MEQ/15ML UDC NG NR (10:30)
--- NOTE | 2018-10-25 14:45 | NUR ---
Dr. Corey called and left message on his voice mail regarding Magnesium level of 1.2 and awaiting call back
--- NOTE | 2018-10-25 15:00 | NUR ---
PATIENT HAD SMALL BM AND GINNY CARE DONE AND NEW URETHRAL WICK APPLIED ALSO. PADS AND LINENS AND GOWN CHANGED AND TOLERATED WELL. NEW ALLEVYN APPLIED TO SACRUM. REDDENED SKIN AREAS NOTED TO LOWER TO MID SECTION OF LEFT SIDE OF HER BACK. WOUND CARE WILL BE CONSULTED.
--- NOTE | 2018-10-25 15:58 | NUR ---
SPEECH PATHOLOGY AT BEDSIDE PERFORMING MBS STUDY
--- NOTE | 2018-10-25 16:25 | Progress Note ---
DATE: 10/25/2018 Medicine Progress Note SUBJECTIVE: The patient is much more alert today on examination. Blood pressure is much more stable now. White count is improved. Lactic acid is back to normal. No overnight events. PHYSICAL EXAMINATION: VITAL SIGNS: Temperature is 99.7, pulse is 103, respiratory rate is 20, blood pressure is 152/51, pulse ox 98% on 2 L nasal cannula. GENERAL: Not in acute distress. Alert and oriented x2. Cooperative on examination. HEENT: Head is normocephalic, atraumatic. Eyes, pupils are equal, round, and reactive to light bilaterally. Extraocular movements are intact bilaterally. Throat, no evidence of erythema or exudate in the posterior pharynx. Has poor dentition. NECK: Supple. Good range of motion. PULMONARY: Clear to auscultation bilaterally. No wheezing. No rales. No rhonchi. No crackles appreciated. CARDIOVASCULAR: Positive S1, S2. No murmur, rub, or gallop appreciated. ABDOMEN: Soft, nondistended, nontender to palpation. Bowel sounds present. MUSCULOSKELETAL: Strength is 5/5 throughout. No evidence of any muscle deficits on examination. No weakness appreciated. NEUROLOGICAL: Cranial nerves II through XII grossly intact. No evidence of any neurological deficits on exam. SKIN: Intact. Warm to touch. Good cap refill. PSYCHIATRIC: Normal affect and mood. EXTREMITIES: No edema. Good range of motion throughout. LABORATORY DATA: Lab findings show white count of 5.9, hemoglobin 10.0, hematocrit is 31, platelets of 146. Chemistry; sodium is 139, potassium 3.5, chloride 107, bicarb 23, anion gap of 11, BUN is 18, creatinine is 0.71, glucose is 134, lactic acid is 8.5 and normal, calcium is 7.7. Urinalysis found to be consistent with UTI. Blood cultures were negative. Sputum cultures consistent with Pseudomonas aeruginosa, which is also ESBL. Urine culture is consistent with ESBL UTI. IMPRESSION: 1. Sepsis secondary to urinary tract infection with aspiration pneumonia. 2. Urinary tract infection to extended-spectrum beta-lactamase. 3. Aspiration pneumonitis. 4. Moderate protein-calorie malnutrition with PEG tube. 5. Baseline dementia. 6. History of atrial fibrillation, on anticoagulation and rate control medications. 7. History of cerebrovascular accident in the past. PLAN: At this time, urine culture is positive for ESBL E coli. We did discuss this with ID that the patient is currently on Rocephin and was just discontinued on clindamycin as well this morning. It is felt that the sputum culture does not need clindamycin, but I would like to talk to him about the Rocephin that was continued, though now she has ESBL UTI. Continue with PEG tube feeds. Replace potassium, which I have discussed with the nurse staff as well. She has failed her swallow eval tremendously and she is going to get a modified barium swallow. She has a much slower rate today on exam. She is still DNR/DNI as per family's wishes. Otherwise, we will get a.m. labs. Start normal saline, put on free water with the tube feeds. Once patient passes her swallow eval, I will resume feeds when she returns today. MD LETICIA Pan/MAYA /[id number]
[2018-10-25] MEDS ORDERED: POTASSIUM CHLORIDE 20MEQ/15ML UDC NG ONE (17:00)
--- NOTE | 2018-10-25 17:16 | Consultation ---
DATE OF CONSULTATION: 10/25/2018 Located at [facility] in [place], [place]. This is a patient of Dr. Corey. I want to thank you for this kind consult. HISTORY OF PRESENT ILLNESS: Ms. Mcdaniel is an 83-year-old lady with a history of dementia and CVA three years ago. She is a prison transfer and has a PEG tube. The patient was noticed by the son getting more confused and shortness of breath. Radiology showed "fluids in the lungs" and there was a concern about the possibility of a UTI and pneumonia. The patient is gradually failing to thrive with decreased appetite, but as I mentioned above, patient has a PEG tube and per my discussion, the patient is on feeding at night and encouraging oral intake during the day. So the patient was transferred to [facility] for evaluation of her weakness and failure to thrive. Blood culture was negative, 24 hours, urine culture, ESBL, E. Coli x2. Sputum shows Pseudomonas aeruginosa, E. coli, ESBL, and also gram-negative bacilli. CT of the head showed no acute finding. Chest x-ray was done and it showed low lung volumes with patchy bibasilar opacities, which may reflect atelectasis or early pneumonia in appropriate clinical settings, so Infectious Disease was consulted for sepsis. The patient's lactic acid is 8.5, which is coming from 46 to 48, 53 to 27 to 22 and now 8.5 today. White blood cell is 5.98 coming from 16.23, hemoglobin is 10.2, platelet count of 146, which is dropping from 226, creatinine is 0.71, potassium is 2.5 with a sodium of 139. PAST MEDICAL HISTORY: CVA, hypothyroidism, dysphagia, failure to thrive, debility, dementia, Alzheimer-type, hypotensive events at times, UTI. SOCIAL HISTORY: The patient is a prison resident with no recent history of a tobacco or ethanol. LABORATORY DATA: Labs as mentioned above. REVIEW OF SYSTEMS: The patient is nonverbal to me. Speech is in the room currently and trying to do swallow test per my discussion with the Speech. The patient coughs with all kinds of consistency so far which are the liquids and applesauce. PHYSICAL EXAMINATION: GENERAL: No acute distress, nonverbal, awake, not following commands. Responds few words, maybe yes. VITAL SIGNS: Temperature is 99.8 max since admission on October 23, pulse is 103, respiration 20, blood pressure is 152/51. CARDIOVASCULAR: S1 and S2. CHEST: Equal expansion. Decreased breath sounds. No acute distress. ABDOMEN: Soft, nontender. No distention. Bowel sounds positive in four quadrants with PEG tube. HEENT: Moist. No pallor. No JVD. EXTREMITIES: Some edema, some contraction of the hands. No acute finding. ASSESSMENT AND PLAN: This is a pleasant 83-year-old female, prison resident, not much of verbal with dysphagia with PEG tube. Concern about pneumonia. Concern about urinary tract infection. The patient is responding well to Rocephin and Cleocin. We will go ahead and stop the Cleocin, continue with Rocephin. Platelets are dropping. We will monitor platelets. Temperature has not been over 99.8 since admission. We will monitor the patient throughout hospitalization. The patient has had a swallow test, so there is a possibility patient to spike fever tomorrow secondary to aspiration pneumonia. We will follow up with the patient clinically. Further management of this patient is based on the final laboratory and physical examination. This case was discussed with Dr. Poole in detail, and I want to thank you for this kind consult. Dictated by Hung Irizarry PA-C (Al) Chelsie Poole MD /MODL /[id number]
--- NOTE | 2018-10-25 20:05 | NUR ---
Dr. Corey called again and left message of Magnesium level of 1.2 and that patient will be moving to Room 204 with telemetry and call back number for MS-2 given and to ask for Nurse GIORGIO Jackson. Son at bedside (Clayton). Telemetry # [id number] applied to patient and reads [id number]. Will be moving patient in her own bed.
[2018-10-25] MEDS ORDERED: SODIUM CHLORIDE 0.9% 250ML 250 ML ONE (20:46)
[2018-10-25] MEDS: CEFTRIAXONE SOD 1 GM/NS 50 ML 50 ML IV SCH (20:55)
[2018-10-25] MEDS: NORTRIPTYLINE HCL 25 MG CAP PO SCH (21:55)
[2018-10-25] MEDS: RIVAROXABAN 15 MG TABLET PO SCH (21:55)
[2018-10-26] VITALS (7 sets, daily range): BP systolic 132–167; BP diastolic 63–73
[2018-10-26] MEDS: LEVALBUTEROL HCL SOLN NEBU 0.63 MG/3 ML NEB INH SCH ×4 (00:45→19:22)
[2018-10-26 05:06] LABS: BASOPHILS % 0.3 % (0.0-1.0); EOSINOPHILS # (AUTO) 0.1 (0.0-0.4); EOSINOPHILS % 0.9 % (0.0-6.0); HEMATOCRIT 36.6 % (34.2-44.1); HEMOGLOBIN 11.5 g/dL (12.0-16.0); LYMPHOCYTES # (AUTO) 0.9 (1.0-3.2); LYMPHOCYTES % 12.5 % (18.0-39.1); MEAN CORPUSCULAR HGB CONC 31.4 g/dL (31-35); MEAN CORPUSCULAR VOLUME 95.6 fL (81-99); MONOCYTES # (AUTO) 0.5 (0.2-0.8); MONOCYTES % 7.7 % (4.4-11.3); NEUTROPHILS # (AUTO) 5.5 (2.1-6.9); NEUTROPHILS % 78.3 % (38.7-80.0); PLATELET COUNT 149 x10e3/uL (140-360); RED BLOOD COUNT 3.83 x10e6/uL (3.6-5.1); RED CELL DISTRIBUTION WIDTH 13.6 % (11.7-14.4)
[2018-10-26 05:28] LABS: ANION GAP 12.1 mmol/L (8-16); BLOOD UREA NITROGEN 16 mg/dL (7-26); BUN/CREATININE RATIO 22 (6-25); CALCIUM 8.1 mg/dL (8.4-10.2); CARBON DIOXIDE 25 mmol/L (22-29); CHLORIDE 105 mmol/L (98-107); CREATININE, SERUM 0.73 mg/dL (0.57-1.11); EST GLOMERULAR FILTRATION RATE > 60 ML/MIN (60-); GLUCOSE 132 mg/dL (74-118); POTASSIUM 4.1 mmol/L (3.5-5.1); SODIUM 138 mmol/L (136-145)
[2018-10-26] MEDS: LEVOTHYROXINE SODIUM 88 MCG TAB PO SCH (05:31)
--- NOTE | 2018-10-26 07:36 | Diagnostic Imaging Report ---
PROCEDURE:X-RAY MODIFIED BARIUM SWALLOW COMPARISON:None. INDICATIONS:Dysphasia with dementia DISCUSSION:Fluoroscopic examination was performed in conjunction with speech pathology, during swallowing of a variety of thin and thick liquid consistencies. Fluoroscopy time: 5.0 minutes. Cumulative dose: 22.8 mGy CONCLUSION:There is penetration into the laryngeal vestibule. Ankit aspiration also noted. Please see the report from speech pathology for complete details. Alex Em D.O. Dictated by: Alex Em D.O. on 10/26/2018 at 7:48 Electronically approved by: Alex Em D.O. on 10/26/2018 at 7:48
--- NOTE | 2018-10-26 09:10 | NUR ---
Pt received resting in bed. Alert and oriented to person alone with saline lock #20 in right hand. Pt is on contact isolation for ESBL in urine. Oriented to staff and surroundings, encouraged to press call parker if help needed. All meds given as ordered. Call parker within reach. Emotional support given. Fall precautions maintained. Will monitor
[2018-10-26] MEDS: LORATADINE 10 MG TAB PO SCH (09:13)
[2018-10-26] MEDS: LACTULOSE SYRUP 20 GM/30 ML UDC PO SCH (09:13)
[2018-10-26] MEDS: MULTIVITAMINS/MINERALS TAB PO SCH (09:13)
[2018-10-26] MEDS: FUROSEMIDE 20 MG TAB PO SCH (09:13)
[2018-10-26] MEDS: METOPROLOL TARTRATE 25 MG TAB PO SCH ×2 (09:13→17:02)
--- NOTE | 2018-10-26 09:15 | NUR ---
Mid back abrasion noted. Aleyvn pad applied. Pt repositioned Q2hrs. Will monitor
--- NOTE | 2018-10-26 10:35 | NUR ---
CM called and spoke to pt's son Clayton Mcdaniel [phone]. Informed him of his mother's Medicare Rights. He verbalized understanding. Signed copy placed in chart. Informed Mr. Mcdaniel that copy will be left at bedside for him.
--- NOTE | 2018-10-26 14:37 | NUR ---
WOUND CARE CONSULTATION: INITIAL EVALUATION [place] for Increased Confusion, Decreased Appetite. DX: ASP PNA, Hemorrhagic cystitis, UTI. HX: HTN, DM. LABS: WBC6.97 HGB11.5 HCT36.6 [id number] Wound Care Consulted for Redness to Lower Mid Section of Back. PATIENT VISIT: Patient in bed, confused. Tl Score 9 Strict PUP Active Alternating Pressure Air Mattress in place Bilateral Heel Protectors in place Incontinent, Diapered. Presents with Mid Back @ spine abrasion- Reddened with bruising. Linear Shaped. Skin not open. Right Lateral Malleolus with scab 0.5x0.5cm superficial, stable and healing, open to air. Non-pressure related. edges irregular. IMPRESSION: 1. Mid Lower Back at Spine - Abrasion - - Venelex Ointment and Cover with Allevyn Foam Dressing Daily. RECOMMENDATION: 1. Mid Lower Back at Spine - Abrasion - - Venelex Ointment and Cover with Allevyn Foam Dressing Daily. 2. Continue Strict PUP 3. Continue Turning and Repositioning Every 2h 4. Continue Bilateral Heel Protectors 5. Continue Alternating Pressure Air Mattress. Thank you for consulting Wound Care. Addendum: 10/26/18 at 1445 by Olivier Mercedes RN Amended: Links added.
--- NOTE | 2018-10-26 14:40 | Progress Note ---
DATE: 10/26/2018 Medicine Progress Note SUBJECTIVE: The patient is at baseline with no complaints. She is arousable when you wake her up, she is able to talk with me. No overnight events. She is improving, very dry, failed her swallow eval. OBJECTIVE: VITAL SIGNS: Temperature 97.9, pulse 97, respiratory rate is 20, blood pressure is 134/63, pulse ox is 97% on 2 L nasal cannula. GENERAL: Not in acute distress. Alert and oriented x3. Cooperative on examination. HEENT: Head is normocephalic and atraumatic. Eyes; pupils are equal, round, and reactive to light bilaterally. Extraocular movements are intact bilaterally. Throat, no evidence of erythema or exudates in the posterior pharynx. Has poor dentition. NECK: Supple. Good range of motion. PULMONARY: Clear to auscultation bilaterally. No wheezing, no rales, no rhonchi, no crackles appreciated. CARDIOVASCULAR: Positive S1, S2. No murmurs, rubs, or gallops appreciated. ABDOMEN: Soft, nondistended, and nontender to palpation. Bowel sounds present. MUSCULOSKELETAL: At baseline. NEUROLOGICAL: At baseline. SKIN: Intact. Warm to touch. Good cap refill. PSYCHIATRIC: At baseline. EXTREMITIES: No edema. Good range of motion throughout LABORATORY DATA: Lab findings show white count 6.9, hemoglobin 9.5, hematocrit is 36.6, and platelets of 149. Chemistry; sodium 138, potassium 4.1, chloride 105, bicarb 25, anion gap is 12, BUN is 16, creatinine is 0.73, glucose is 132, calcium 2.1. Microbiology, blood cultures were negative. Urine culture and sputum cultures were noted. A modified barium swallow was performed yesterday, 10/25/2018, shows penetration at the laryngeal area and concern for aspiration. IMPRESSION: 1. Sepsis secondary to urinary tract infection with aspiration pneumonia. 2. Urinary tract infection with extended-spectrum beta-lactamase. 3. Aspiration pneumonitis. 4. Moderate protein-calorie malnutrition with PEG tube, failed swallow eval and modified barium swallow. 5. Baseline dementia. 6. History of atrial fibrillation, on anticoagulation and rate control medications. 7. History of cerebrovascular accident in the past, at baseline. PLAN: At this time, blood and urine cultures were noted. IV antibiotics as per ID recommendations. Sputum culture is also noted. Continue with PEG tube feeds. She failed modified barium swallow. Work with PT and OT. She is on DVT prophylaxis. Get a.m. labs. Current labs are stable. Plan is to monitor through the weekend and likely discharge on Monday back to the assisted. MD LETICIA Pan/MAYA /[id number]
--- NOTE | 2018-10-26 19:15 | NUR ---
Report taken from previous nurse. Patient in bed, lying on her left side. son at bedside. Call light within reach.
[2018-10-26] MEDS: CEFTRIAXONE SOD 1 GM/NS 50 ML 50 ML IV SCH (20:29)
[2018-10-26] MEDS: RIVAROXABAN 15 MG TABLET PO SCH (20:29)
[2018-10-26] MEDS: NORTRIPTYLINE HCL 25 MG CAP PO SCH (20:29)
[2018-10-26] MEDS ORDERED: MAGNESIUM SULFATE 2GM/50ML 50 ML IV ONE (22:15)
--- NOTE | 2018-10-26 22:30 | NUR ---
Dr. Corey called because he got a call that the patients magnesium was low so he ordered 2G IV Magnesium Sulfate.
[2018-10-27] VITALS (9 sets, daily range): BP systolic 113–161; BP diastolic 57–70
[2018-10-27] MEDS: LEVALBUTEROL HCL SOLN NEBU 0.63 MG/3 ML NEB INH SCH ×4 (01:25→19:42)
[2018-10-27 05:21] LABS: BASOPHILS % 0.2 % (0.0-1.0); EOSINOPHILS % 0.6 % (0.0-6.0); HEMOGLOBIN 11.4 g/dL (12.0-16.0); LYMPHOCYTES # (AUTO) 0.7 (1.0-3.2); LYMPHOCYTES % 10.5 % (18.0-39.1); MEAN CORPUSCULAR HGB CONC 31.7 g/dL (31-35); MEAN CORPUSCULAR VOLUME 94.7 fL (81-99); MONOCYTES # (AUTO) 0.4 (0.2-0.8); MONOCYTES % 6.1 % (4.4-11.3); NEUTROPHILS # (AUTO) 5.4 (2.1-6.9); NEUTROPHILS % 82.1 % (38.7-80.0); PLATELET COUNT 150 x10e3/uL (140-360); RED CELL DISTRIBUTION WIDTH 13.5 % (11.7-14.4)
[2018-10-27 05:51] LABS: ANION GAP 14.3 mmol/L (8-16); BLOOD UREA NITROGEN 15 mg/dL (7-26); BUN/CREATININE RATIO 21 (6-25); CALCIUM 8.2 mg/dL (8.4-10.2); CARBON DIOXIDE 29 mmol/L (22-29); CHLORIDE 97 mmol/L (98-107); CREATININE, SERUM 0.71 mg/dL (0.57-1.11); EST GLOMERULAR FILTRATION RATE > 60 ML/MIN (60-); GLUCOSE 176 mg/dL (74-118); POTASSIUM 3.3 mmol/L (3.5-5.1); SODIUM 137 mmol/L (136-145)
[2018-10-27] MEDS: LEVOTHYROXINE SODIUM 88 MCG TAB PO SCH (06:26)
--- NOTE | 2018-10-27 07:25 | NUR ---
Gave report to oncoming nurse. Patient in bed with no pain or distress. son at bedside. call light within reach.
[2018-10-27] MEDS: BALSAM PERU/CASTOR OIL 60 GM OINT...G. TP SCH (09:00)
[2018-10-27] MEDS: LACTULOSE SYRUP 20 GM/30 ML UDC PO SCH (09:00)
--- NOTE | 2018-10-27 09:00 | NUR ---
Pt received resting in bed. Alert and oriented to person alone. Pt turned, and repositioned Q2hrs. Emotional support given. All meds given as ordered. Call parker within reach. Will monitor
[2018-10-27] MEDS: METOPROLOL TARTRATE 25 MG TAB PO SCH ×2 (09:01→17:05)
[2018-10-27] MEDS: MULTIVITAMINS 5 ML LIQUID GT SCH (09:01)
[2018-10-27] MEDS: FUROSEMIDE 20 MG TAB PO SCH (09:01)
[2018-10-27] MEDS: LORATADINE 10 MG TAB PO SCH (09:01)
[2018-10-27] MEDS ORDERED: POTASSIUM CHLORIDE 20MEQ/15ML UDC PEG ONE (13:00)
--- NOTE | 2018-10-27 16:51 | Progress Note ---
DATE: 10/27/2018 Medicine Progress Note SUBJECTIVE: The patient is at baseline. No changes. She is doing much better though. She is not alert enough to even begin feeds, which we are going to re-initiate hopefully on Monday. Discussed case with nursing staff. OBJECTIVE: VITAL SIGNS: Temperature 97.5, pulse 77, respiratory rate 19, blood pressure 142/66, and pulse ox 100% on 2 L nasal cannula. GENERAL: Not in acute distress. Alert and oriented x3. Cooperative on examination. HEENT: Head is normocephalic and atraumatic. Eyes; pupils are equal, round, and reactive to light bilaterally. Extraocular movements are intact bilaterally. Throat, no evidence of erythema or exudates in the posterior pharynx. Has poor dentition. NECK: Supple. Good range of motion. PULMONARY: Clear to auscultation bilaterally. No wheezing, no rales, no rhonchi, no crackles appreciated. CARDIOVASCULAR: Positive S1, S2. No murmurs, rubs, or gallops appreciated. ABDOMEN: Soft, nondistended, and nontender to palpation. Bowel sounds present. MUSCULOSKELETAL: Strength is 5/5 throughout. No evidence of any muscle deficits on examination. No weakness appreciated. NEUROLOGICAL: Unable to assess. SKIN: Intact. Warm to touch. Good cap refill. PSYCHIATRIC: Normal affect and mood. EXTREMITIES: No edema. Good range of motion throughout. LAB FINDINGS: Show white count 6.6, hemoglobin 12.1, Hematocrit 36, and platelets of 150. Chemistry; sodium 137, potassium 3.3, chloride 97, bicarb 29, anion gap of 14, BUN is 15, creatinine is 0.71, and calcium is 8.2. Urinalysis noted. Blood cultures were no growth to date. Urine culture and sputum cultures are noted. IMAGING STUDIES: None. IMPRESSION: 1. Sepsis secondary to urinary tract infection with underlying aspiration pneumonia. 2. Urinary tract infection with ESBL. 3. Aspiration pneumonitis. 4. Moderate protein-calorie malnutrition with PEG tube failed, swallow eval, modified barium swallow. 5. Baseline dementia. 6. History of atrial fibrillation, on anticoagulation and rate control medication. 7. History of cerebrovascular accident in the past. PLAN: At this time, blood and urine cultures were noted and IV antibiotics as per ID recommendations. The PEG tube feeds, we will continue with same feeds. Replace potassium is very low today. Get labs for tomorrow. PT and OT work with her daily. She is still very weak to initiate any kind of swallow eval, which were likely due on Monday. She is on DVT prophylaxis. Plan is to discharge home soon in the next 1 to 2 days once we were able to have her swallow, if not, she will go back to the snf on PEG tube feeds with outpatient followup swallow eval. MD LETICIA Pan/MODL /[id number]
[2018-10-27] MEDS: ACETAMINOPHEN 325 MG/10 ML UDC PEG PRN (17:05)
--- NOTE | 2018-10-27 18:09 | Diagnostic Imaging Report ---
EXAMINATION: CHEST SINGLE (PORTABLE) INDICATION: ^elevated temp, r/o aspiration ^[id number] ^1725 ^Y COMPARISON: 10/24/2018 FINDINGS: AP view TUBES and LINES: None. LUNGS: Lungs are well inflated. Mild right basilar linear opacification. PLEURA: No pleural effusion or pneumothorax. HEART AND MEDIASTINUM: The cardiomediastinal silhouette is unremarkable. Aorta is calcified and tortuous. BONES AND SOFT TISSUES: No acute osseous lesion. Soft tissues are unremarkable. UPPER ABDOMEN: No free air under the diaphragm. Again seen left upper quadrant calcified mass. IMPRESSION: Mild right basilar linear opacification, likely atelectasis. Developing pneumonia cannot be entirely excluded. Signed by: Dr. Kiran Bass MD on 10/27/2018 6:05 PM
--- NOTE | 2018-10-27 18:55 | NUR ---
RECEIVED REPORT FROM PREVIOUS NURSE. PATIENT IN BED. NO PAIN OR DISTRESS. CALL LIGHT WITHIN REACH.
--- NOTE | 2018-10-27 20:00 | NUR ---
Dr. Poole called and said it is okay to Nay. I told him the note the pharmacist left and he said still give the medication. I called pharmacy and told them what Dr Poole said so gave the medication
[2018-10-27] MEDS: NORTRIPTYLINE HCL 25 MG CAP PO SCH (21:17)
[2018-10-27] MEDS: RIVAROXABAN 15 MG TABLET PO SCH (21:17)
[2018-10-27] MEDS ORDERED: MEROPENEM 500 MG VIAL ONE (22:20)
[2018-10-27] MEDS: MEROPENEM 500MG 500 MG in SODIUM CHLORIDE 0.9% 50ML 50 ML IV SCH (22:32)
[2018-10-27] MEDS ORDERED: SODIUM CHLORIDE 0.9% 50ML 50 ML ONE (22:34)
[2018-10-28] VITALS (8 sets, daily range): BP systolic 108–187; BP diastolic 52–82
[2018-10-28] MEDS: LEVALBUTEROL HCL SOLN NEBU 0.63 MG/3 ML NEB INH SCH ×4 (00:05→19:33)
[2018-10-28] MEDS: MEROPENEM 500MG 500 MG in SODIUM CHLORIDE 0.9% 50ML 50 ML IV SCH (02:51)
[2018-10-28] MEDS ORDERED: SODIUM CHLORIDE 0.9% 50ML 50 ML ONE ×2 (02:53)
[2018-10-28 05:05] LABS: BASOPHILS % 0.2 % (0.0-1.0); EOSINOPHILS # (AUTO) 0.1 (0.0-0.4); HEMATOCRIT 37.2 % (34.2-44.1); HEMOGLOBIN 11.4 g/dL (12.0-16.0); LYMPHOCYTES # (AUTO) 0.8 (1.0-3.2); LYMPHOCYTES % 16.5 % (18.0-39.1); MEAN CORPUSCULAR HEMOGLOBIN 29.8 pg (28-32); MEAN CORPUSCULAR HGB CONC 30.6 g/dL (31-35); MEAN CORPUSCULAR VOLUME 97.4 fL (81-99); MONOCYTES # (AUTO) 0.4 (0.2-0.8); MONOCYTES % 6.9 % (4.4-11.3); NEUTROPHILS # (AUTO) 3.8 (2.1-6.9); PLATELET COUNT 135 x10e3/uL (140-360); RED BLOOD COUNT 3.82 x10e6/uL (3.6-5.1); RED CELL DISTRIBUTION WIDTH 13.6 % (11.7-14.4)
[2018-10-28 05:27] LABS: ANION GAP 16.1 mmol/L (8-16); BLOOD UREA NITROGEN 17 mg/dL (7-26); BUN/CREATININE RATIO 25 (6-25); CALCIUM 8.3 mg/dL (8.4-10.2); CARBON DIOXIDE 27 mmol/L (22-29); CHLORIDE 99 mmol/L (98-107); CREATININE, SERUM 0.69 mg/dL (0.57-1.11); EST GLOMERULAR FILTRATION RATE > 60 ML/MIN (60-); GLUCOSE 128 mg/dL (74-118); MAGNESIUM 1.7 MG/DL (1.3-2.1); POTASSIUM 4.1 mmol/L (3.5-5.1); SODIUM 138 mmol/L (136-145)
[2018-10-28] MEDS: LEVOTHYROXINE SODIUM 88 MCG TAB PO SCH (05:56)
--- NOTE | 2018-10-28 06:49 | NUR ---
Gave report to oncoming nurse. Patient asleep in bed. No pain or distress. Call light within reach.
--- NOTE | 2018-10-28 09:20 | NUR ---
Pt received resting in bed. Oral care provided. HOB elevated. Emotional support given. All meds given as ordered. Call parker within reach. Will monitor
[2018-10-28] MEDS: BALSAM PERU/CASTOR OIL 60 GM OINT...G. TP SCH (09:26)
[2018-10-28] MEDS: MULTIVITAMINS 5 ML LIQUID GT SCH (09:26)
[2018-10-28] MEDS: MEROPENEM 500MG/ NS 50ML 50 ML IV SCH ×3 (09:26→21:00)
[2018-10-28] MEDS: METOPROLOL TARTRATE 25 MG TAB PO SCH ×2 (09:26→17:46)
[2018-10-28] MEDS: LACTULOSE SYRUP 20 GM/30 ML UDC PO SCH (09:26)
[2018-10-28] MEDS: LORATADINE 10 MG TAB PO SCH (09:26)
[2018-10-28] MEDS: FUROSEMIDE 20 MG TAB PO SCH (09:26)
[2018-10-28] MEDS ORDERED: POTASSIUM CHLORIDE 20MEQ/15ML UDC NG NR (17:00)
--- NOTE | 2018-10-28 17:06 | Progress Note ---
DATE: 10/28/2018 Medicine Progress Note SUBJECTIVE: The patient is much more alert today, talkative on exam, alert and oriented x3, back to normal baseline. Son was at bedside. He reports that she is much better now. The patient developed fever yesterday in which antibiotics were rearranged. OBJECTIVE: VITAL SIGNS: Temperature is 98, pulse 90, respiratory rate is 16, blood pressure 169/77, pulse ox 100% on 2 L nasal cannula. GENERAL: Not in acute distress. Alert and oriented x3. Cooperative on examination. HEENT: Head is normocephalic and atraumatic. Eyes; pupils are equal, round, and reactive to light bilaterally. Extraocular movements are intact bilaterally. Throat, no evidence of erythema or exudates in the posterior pharynx. Has poor dentition. NECK: Supple. Good range of motion. PULMONARY: Clear to auscultation bilaterally. No wheezing, no rales, no rhonchi, no crackles appreciated. CARDIOVASCULAR: Positive S1, S2. No murmurs, rubs, or gallops appreciated. ABDOMEN: Soft, nondistended, and nontender to palpation. Bowel sounds present. MUSCULOSKELETAL: Unable to assess, at baseline. NEUROLOGICAL: Unable to assess, at baseline. SKIN: Intact. Warm to touch. Good cap refill. PSYCHIATRIC: At baseline, alert and oriented x3, cooperative. EXTREMITIES: No edema. Good range of motion throughout. LABORATORY DATA: Show white count 5, hemoglobin 11.4, hematocrit 37, and platelets of 135. Chemistry; sodium 138, potassium 4.1, chloride 99, bicarb 27, anion gap of 16, BUN 17, creatinine 0.69, glucose 128. MICROBIOLOGY: Repeat blood cultures are pending today. IMAGING STUDIES: Chest x-ray shows mild basilar linear opacity likely atelectasis. Developing . IMPRESSION: 1. Sepsis secondary to urinary tract infection with underlying aspiration pneumonia, now with a fever. 2. Urinary tract infection with ESBL. 3. Aspiration pneumonitis. 4. Moderate protein-calorie malnutrition with PEG tube, failed swallow evaluation after a modified barium swallow. 5. Baseline dementia. 6. History of atrial fibrillation, on anticoagulation, rate controlled. 7. History of cerebrovascular accident in the past. PLAN: At this time, repeat blood cultures have been collected. The patient developed a fever yesterday, antibiotics were rearranged per ID. We will continue the same PEG tube feeds at this time. She is tolerating it well. We are going to repeat swallow evaluation tomorrow. Get a.m. labs. Work with PT and OT. She is on DVT prophylaxis. Plan to discharge home in the next few days once the patient is much improved and the repeat cultures are negative. MD LETICIA Pan/MAYA /[id number]
--- NOTE | 2018-10-28 19:25 | NUR ---
Received report from previous nurse. patient in no pain or distress. call light within reach.
--- NOTE | 2018-10-28 19:38 | NUR ---
Oral care was done on patient and continued care for patient
[2018-10-28] MEDS: NORTRIPTYLINE HCL 25 MG CAP PO SCH (21:00)
[2018-10-28] MEDS: RIVAROXABAN 15 MG TABLET PO SCH (21:01)
[2018-10-29] VITALS (8 sets, daily range): BP systolic 138–169; BP diastolic 62–83
[2018-10-29] MEDS: LEVALBUTEROL HCL SOLN NEBU 0.63 MG/3 ML NEB INH SCH ×4 (00:20→20:00)
--- NOTE | 2018-10-29 01:40 | NUR ---
Patient's PEG tube was laying on the bed, with the bulb intact. Gauze dressing applied to site with tape. Dr. Corey notified and ordered to call surgery and the patient to be seen first thing in the morning. Patient in no pain or distress. Charge nurse notified.
[2018-10-29] MEDS: MEROPENEM 500MG/ NS 50ML 50 ML IV SCH ×4 (03:22→20:30)
[2018-10-29] MEDS: LEVOTHYROXINE SODIUM 88 MCG TAB PO SCH (06:00)
--- NOTE | 2018-10-29 06:15 | NUR ---
Called Dr. Corey about the PEG tube being out. He told me to place a consult to Dr. Kaity Whalen for replacement of PEG tube.
--- NOTE | 2018-10-29 07:10 | NUR ---
RCD PT AT BED PT IS CONFUSED GOT THE REPORT PEG TUBE DISLODGED IN THE NIGHT PT IS NPO PT RESTING ON BED NO SIGNS OF ANY DISTRESS NOTED BED LOW AND LOCKED CALL LIGHT IN REACH
--- NOTE | 2018-10-29 07:16 | NUR ---
Gave report to oncoming nurse. Patient asleep in bed. no pain or distress. call light within reach.
[2018-10-29] MEDS ORDERED: SODIUM CHLORIDE 0.9% 250ML 250 ML ONE (08:51)
[2018-10-29] MEDS: LORATADINE 10 MG TAB PO SCH (09:00)
[2018-10-29] MEDS: BALSAM PERU/CASTOR OIL 60 GM OINT...G. TP SCH (09:00)
[2018-10-29] MEDS: LACTULOSE SYRUP 20 GM/30 ML UDC PO SCH (09:00)
[2018-10-29] MEDS: FUROSEMIDE 20 MG TAB PO SCH (09:00)
[2018-10-29] MEDS: MULTIVITAMINS 5 ML LIQUID GT SCH (09:00)
[2018-10-29] MEDS: METOPROLOL TARTRATE 25 MG TAB PO SCH ×2 (09:00→17:00)
--- NOTE | 2018-10-29 10:53 | NUR ---
EDUCATED ABOUT IMM, SIGNED, FILED IN CHART, WITH COPY LEFT WITH FAMILY AT BEDSIDE.
--- NOTE | 2018-10-29 11:02 | NUR ---
DALIA AND TALKED DR Pat LLOYD HE PLANNING TO DO EGD AND PEG PLACEMENT
--- NOTE | 2018-10-29 13:47 | NUR ---
pt had blood thinner on yesterday at 2100 so the peg placement only on tomorrow
[2018-10-29] MEDS: DEXTROSE 5%/0.9% SOD CHL 1,000 ML IV SCH (14:00)
--- NOTE | 2018-10-29 17:07 | Progress Note ---
DATE: 10/29/2018 Medicine Progress Note SUBJECTIVE: The patient is doing well today with no complaints. Last night, she pulled the PEG tube out. GI has been consulted in the process of possibly placing PEG tube today. We are not sure how she pulled the PEG tube out. We will apply a abdominal binder after the second PEG tube is being placed. PHYSICAL EXAMINATION: VITAL SIGNS: Temperature 98.3, pulse 89, respiratory rate is 16, blood pressure 152/65, pulse ox is 97% on 2 L nasal cannula. GENERAL: Not in acute distress. Alert and oriented x2. Cooperative on examination. HEENT: Head is normocephalic and atraumatic. Eyes; pupils are equal, round, and reactive to light bilaterally. Extraocular movements are intact bilaterally. Throat, no evidence of erythema or exudates in the posterior pharynx. Has poor dentition. NECK: Supple. Good range of motion. PULMONARY: Clear to auscultation bilaterally. No wheezing, no rales, no rhonchi, no crackles appreciated. CARDIOVASCULAR: Positive S1, S2. No murmurs, rubs, or gallops appreciated. ABDOMEN: Soft, nondistended, and nontender to palpation. Bowel sounds present. MUSCULOSKELETAL: Strength is 5/5 throughout. No evidence of any muscle deficits on examination. No weakness appreciated. NEUROLOGICAL: Cranial nerves II through XII grossly intact. No evidence of any neurological deficits on exam. SKIN: Intact. Warm to touch. Good cap refill. PSYCHIATRIC: Normal affect and mood. EXTREMITIES: No edema. Good range of motion throughout. LABORATORY DATA: Lab findings show white count is 5, hemoglobin 11.4, hematocrit 37, and platelets of 135. Chemistry, sodium 138, potassium 4.1, chloride 99, bicarb 27, anion gap is 16, BUN 17, creatinine is 0.69, glucose is 128, calcium is 8.3, magnesium is 1.7. Blood cultures repeat were negative. Initial blood cultures were negative. Urine cultures and sputum cultures as noted. IMAGING STUDIES: None. IMPRESSION: 1. Sepsis secondary to urinary tract infection with underlying aspiration pneumonia with improved fever. 2. Urinary tract infection with. 3. extended-spectrum beta-lactamase. 4. Aspiration pneumonitis. 5. Moderate protein-calorie malnutrition with PEG tube, failed swallow evaluation, now pulled her PEG tube overnight. 6. Baseline dementia. 7. History of atrial fibrillation, on anticoagulation, rate controlled. 8. History of cerebrovascular accident in the past. PLAN: At this time, repeat blood cultures have been collected, which showed no growth to date. She did pull her PEG tube today. GI has been consulted with possible insertion today. Continue working with PT and OT daily. She is now afebrile. White count is normal. Follow ID recommendations. We will continue same plan of care. Get a.m. labs. MD LETICIA Pan/MODL /[id number]
--- NOTE | 2018-10-29 17:25 | NUR ---
Nutrition Intervention Note RD Recommendation(s) for Physician: -When PEG replaced, resume TF of Jevity 1.2 with goal rate of 55 ml/hr -Rec 20mL/hr of free water flushes for 10hr; additional per MD discretion -Diet per REPAIR SERVICE CLERK/MD Plan of Care: RD following, monitoring for tolerance and adequacy, TF rec Nutrition reason for involvement: Follow up RD Assessment 10/29: Follow up. Pt discussed during am rounds. Pt pulled out PEG this am, MD aware per RN, and plan for EGD and replacement today or tomorrow with addition of abdominal binder. Pt previously tolerating TF at goal rate per RN prior to pt pulling out PEG. No REPAIR SERVICE CLERK evaluation noted per chart. Chart reviewed. Pt now on D5NS at 75 ml/hr. Will monitor and continue to follow. 10/24 Chart reviewed. 83yo F, who was admitted for aspiration PNA. Pt came from a longterm with PEG tube POA. Per RN Brenda, pt ate 50% of her oatmeal and was coughing after drinking milk this AM. Pt was able to tolerate soft foods alright. Per son, pt was on a pureed diet with Ensure at the longterm. Pt also got supplemental EN (bolus feeding of 4x 250cc Fibersource) through PEG at night time if her PO intake during the day was low. No GI complains noted. Per son, pt was having significant weight loss due to ill-fitting denture about 8 months ago. Since the denture was removed, pt has been maintaining her weight at 110lb. REPAIR SERVICE CLERK has been consulted. Spoke to Dr. Corey regarding RD recommendation. Dr. Corey agreed with plan; order has been placed. Will continue to monitor and follow. Principal Problems/Diagnoses: Aspiration PNA PMH: HTN, AL, CVA, hypothyroidism, dementia, stroke, CVA w/ R side weakness GI: abdomen soft, non-tender, round, LBM 10/29 Skin: Stage II PU to back Labs: 10/28: Gluc 128, Ca 8.3 Meds: abx, MVI, lasix, synthroid, lactulose Ht: 63 in (approximation) Wt: 113.31lb BMI: 20kg/m2 IBW: 115lb Malnutrition Evaluation (10/24/2018) The patient does not meet criteria for a specified degree of malnutrition at this time. Will re-evaluate at follow-up as appropriate. Nutrition Prescription (Diet Order): TF jevity 1.2 at 55 ml/hr- held currently Estimated Nutritional Needs: Calories: 1300 1820kcal (25-35kcal/kg/d) Weight used: Current BW Protein: 52 78g (1-1.5g/kg/d) Weight used: Current BW Diet Adequacy: Not meeting calorie needs, Not meeting protein needs Diet Education Needs Assessment: Diet education not indicated; pt on TF. Nutrition Care Level: mod Nutrition Diagnosis: Inadequate oral intake related to chronic illness as evidenced by pt requiring ONS and EN through PEG while at longterm. Goal: Patient will meet 75-100% of estimated needs by follow up Progress: Progressing Interventions: Composition, Rate, Route, Recommended Modifications, Collaboration with other providers Monitoring/Evaluation: Total energy intake, Total protein intake, Formula/Solution, Weight change Signed: Tequila Morales RD, LD, CNSC
--- NOTE | 2018-10-29 18:00 | NUR ---
ABDOMINAL BINDER APPLIED
--- NOTE | 2018-10-29 18:51 | NUR ---
PT RESTING ON BED BED SIDE REPORT GIVEN TO ONCOMING NURSE
[2018-10-29] MEDS: NORTRIPTYLINE HCL 25 MG CAP PO SCH (20:17)
[2018-10-30] VITALS (8 sets, daily range): BP systolic 140–184; BP diastolic 61–93
[2018-10-30] MEDS: LEVALBUTEROL HCL SOLN NEBU 0.63 MG/3 ML NEB INH SCH ×4 (00:30→19:35)
--- NOTE | 2018-10-30 00:50 | NUR ---
DR Pat LLOYD IN UNIT ROUNDING ON PT AT THIS TIME.
[2018-10-30] MEDS: MEROPENEM 500MG/ NS 50ML 50 ML IV SCH ×4 (03:10→21:37)
[2018-10-30] MEDS: DEXTROSE 5%/0.9% SOD CHL 1,000 ML IV SCH ×2 (03:20→16:40)
[2018-10-30] MEDS: LEVOTHYROXINE SODIUM 88 MCG TAB PO SCH (05:28)
[2018-10-30 06:21] LABS: ANION GAP 12.2 mmol/L (8-16); BLOOD UREA NITROGEN 12 mg/dL (7-26); BUN/CREATININE RATIO 18 (6-25); CALCIUM 8.5 mg/dL (8.4-10.2); CARBON DIOXIDE 27 mmol/L (22-29); CHLORIDE 106 mmol/L (98-107); CREATININE, SERUM 0.68 mg/dL (0.57-1.11); EST GLOMERULAR FILTRATION RATE > 60 ML/MIN (60-); GLUCOSE 114 mg/dL (74-118); POTASSIUM 4.2 mmol/L (3.5-5.1); SODIUM 141 mmol/L (136-145)
[2018-10-30 06:49] LABS: BASOPHILS % 0.4 % (0.0-1.0); EOSINOPHILS # (AUTO) 0.1 (0.0-0.4); EOSINOPHILS % 1.6 % (0.0-6.0); HEMATOCRIT 34.7 % (34.2-44.1); HEMOGLOBIN 10.9 g/dL (12.0-16.0); LYMPHOCYTES % 20.4 % (18.0-39.1); MEAN CORPUSCULAR HGB CONC 31.4 g/dL (31-35); MEAN CORPUSCULAR VOLUME 95.6 fL (81-99); MONOCYTES # (AUTO) 0.4 (0.2-0.8); MONOCYTES % 8.6 % (4.4-11.3); NEUTROPHILS # (AUTO) 3.5 (2.1-6.9); NEUTROPHILS % 68.4 % (38.7-80.0); PLATELET COUNT 257 x10e3/uL (140-360); RED BLOOD COUNT 3.63 x10e6/uL (3.6-5.1); RED CELL DISTRIBUTION WIDTH 13.5 % (11.7-14.4)
--- NOTE | 2018-10-30 06:59 | NUR ---
REPORT GIVEN TO ONCOMING NURSE.WALKING ROUNDS MADE.PT RESTING IN BED WITH NO S/S OF DISTRESS.
--- NOTE | 2018-10-30 07:10 | NUR ---
RCD PT AT BED PT IS CONFUSED ASSESSMENT DONE PT NPO FOR PROCEDURE IV PATENT AND RUNNING 75 ML /HR PT RESTING ON BED NO SIGNS OF ANY DISTRESS NOTED BED LOW AND LOCKED CALL LIGHT IN REACH
[2018-10-30] MEDS: BALSAM PERU/CASTOR OIL 60 GM OINT...G. TP SCH (09:00)
[2018-10-30] MEDS: LORATADINE 10 MG TAB PO SCH (09:00)
[2018-10-30] MEDS: METOPROLOL TARTRATE 25 MG TAB PO SCH ×2 (09:00→17:00)
[2018-10-30] MEDS: MULTIVITAMINS 5 ML LIQUID GT SCH (09:00)
[2018-10-30] MEDS: FUROSEMIDE 20 MG TAB PO SCH (09:00)
[2018-10-30] MEDS: LACTULOSE SYRUP 20 GM/30 ML UDC PO SCH (09:00)
--- NOTE | 2018-10-30 12:00 | NUR ---
NOTIFIED BP 184/93 MM/HG TO DR ARCHER GOT NEW ORDERS
[2018-10-30] MEDS: HYDRALAZINE HCL 20 MG/ML VIAL IV PRN (12:35)
--- NOTE | 2018-10-30 13:00 | NUR ---
RECHECKED BP 162/76 MM/HG
--- NOTE | 2018-10-30 14:43 | NUR ---
PT WENT TO PROCEDURE IN SAFE CONDITION
--- NOTE | 2018-10-30 16:02 | Progress Note ---
DATE: 10/30/2018 Medicine Progress Note SUBJECTIVE: The patient is alert and awake on examination, she is oriented as well. She is scheduled to have a PEG tube placement later today. Blood pressure is slightly elevated for which we added p.r.n. hydralazine. No overnight events. PHYSICAL EXAMINATION: VITAL SIGNS: Temperature is 97, pulse 96, respiratory rate is 18, blood pressure is 172/82, and pulse ox 95% on 2 L nasal cannula. GENERAL: Not in acute distress. Alert and oriented x3. Cooperative on examination. HEENT: Head is normocephalic and atraumatic. Eyes; pupils are equal, round, and reactive to light bilaterally. Extraocular movements are intact bilaterally. Throat, no evidence of erythema or exudates in the posterior pharynx. Has poor dentition. NECK: Supple. Good range of motion. PULMONARY: Clear to auscultation bilaterally. No wheezing, no rales, no rhonchi, no crackles appreciated. CARDIOVASCULAR: Positive S1, S2. No murmurs, rubs, or gallops appreciated. ABDOMEN: Soft, nondistended, and nontender to palpation. Bowel sounds present. MUSCULOSKELETAL: At baseline. NEUROLOGICAL: At baseline. SKIN: Intact. Warm to touch. Good cap refill. PSYCHIATRIC: At baseline. EXTREMITIES: No edema. Good range of motion throughout. LAB FINDINGS: Show white count 5.1, hemoglobin 10.9, hematocrit is 34.7, and platelets of 257. Chemistry; sodium 141, potassium 4.3, chloride 106, bicarb is 27, anion gap of 12, BUN is 12, creatinine is 0.68, glucose is 114, and calcium is 8.5. MICROBIOLOGY: Noted. IMAGING STUDIES: Nothing new. IMPRESSION: 1. Sepsis secondary to urinary tract infection with underlying aspiration pneumonia with improved fever. 2. Extended-spectrum beta-lactamase urinary tract infection. 3. Aspiration pneumonitis. 4. Moderate protein-calorie malnutrition with percutaneous endoscopic gastrostomy tube, now status post pulled and dislodged and we will replace later today. 5. Baseline dementia. 6. History of atrial fibrillation, on anticoagulation, rate controlled. 7. History of cerebrovascular accident in the past. PLAN: At this time, she continues to be on IV antibiotics, being managed by ID. Her PEG tube will be placed later today by GI and we will determine when the tube feeds can be started and re-initiation of anticoagulation per GI. Continue work with PT and OT daily. Labs are stable and vital signs are stable as well. Continue to follow ID and GI recommendations. Hoping that the patient can be discharged shortly in the next 1 to 2 days. MD LETICIA Pan/MODL /[id number]
--- NOTE | 2018-10-30 16:20 | NUR ---
PT BACK AFTER PROCEDURE PT IS ALERT AND RETING ON BED VITALS CHECKED BED LOW AND LOCKED CALL LIGHT IN REACH
--- NOTE | 2018-10-30 16:30 | NUR ---
PAGED DR Pat LLOYD TO KNOW WHETHER SHE CAN START TUBE FEEDING
--- NOTE | 2018-10-30 17:49 | NUR ---
AGAIN PAGED DR Pat LLOYD
--- NOTE | 2018-10-30 17:51 | NUR ---
DR LLOYD RETURNED CALL AND GOT THE ORDER TO CONTINUE FEED PREVIOUS ORDER
[2018-10-30] MEDS ORDERED: MIDAZOLAM HCL 2 MG/2 ML VIAL ONE (18:10)
--- NOTE | 2018-10-30 18:15 | NUR ---
A/C TO DR Pat KELLOGG ORDER TUBE FEEDING JEVITY 1.2 55 ML STARTED AND FLUSHED WITH WATER 100 ML EVERY 6 HRS
[2018-10-30] MEDS ORDERED: PROPOFOL IV EMULSION 10 MG/ML 50 ML VIAL ONE (18:21)
--- NOTE | 2018-10-30 18:21 | NUR ---
TUBE IS SECURED BY ABDOMINAL BINDER
--- NOTE | 2018-10-30 18:44 | NUR ---
PT RESTING ON BED BED SIDE REPORT GIVEN TO ONCOMING NURSE
[2018-10-30] MEDS: NORTRIPTYLINE HCL 25 MG CAP PO SCH (21:40)
--- NOTE | 2018-10-30 21:40 | NUR ---
PT RESTING ON BED WITH HOB ELEVATED.NO S/S OF DISTRESS NOTED.RESPIRATIONS EVEN/NON LABORED.PEG TUBE INTACT,PATENT.ABD BINDER ON.JEVITY 1.2 RUNNING AT 55ML/HR.RESIDUAL CHECKED,NONE NOTED AT THIS TIME.BED IN LOWEST/LOCKED POSITION.BED ALARM ON.WILL CONTINUE TO MONITOR.
--- NOTE | 2018-10-30 23:04 | Operative Report ---
DATE OF PROCEDURE: 10/30/2018 SURGEON: Raheem Whalen MD PROCEDURE: EGD with PEG tube replacement. INDICATIONS FOR PROCEDURE: Oropharyngeal dysphagia, G-tube dependent, G-tube was dislodged. MEDICATION: The patient was done under MAC, please see anesthesiologist's note. PROCEDURE IN DETAIL: With the patient in the supine position, a flexible fiberoptic Olympus gastroscope was introduced into the esophagus under direct visualization without any difficulty. A long segment of what appears to be Bay's esophagus was noted. It extended approximately 11 cm from the GE junction proximally. The scope was then advanced with ease into the stomach traversing a small hiatal hernia. Mucosa overlying the antrum and the body revealed some patchy areas of erythema. Pylorus was intubated with ease and the scope was advanced all the way to the second portion of the duodenum. The scope was then withdrawn slowly. Mucosa overlying the proximal second portion and duodenal bulb appeared to be within normal limits. The scope was then withdrawn back into the stomach and retroflexed. The mucosa overlying the fundus and the cardia appeared to be within normal limits. The previously described hiatal hernia was also noted in the retroflexed position. The scope was then straightened out and then PEG tube replacement was carried out through the old G-tube stoma. The scope was subsequently withdrawn after documenting a good positioning of the intragastric bumper. The patient tolerated the procedure well. IMPRESSION: 1. Long segment of Bay's esophagus. 2. Small hiatal hernia. 3. Gastritis. 4. PEG tube replacement carried out in the usual fashion through the old G-tube stoma. The patient tolerated the procedure well. PLAN: Can use G-tube upon return to floor. Raheem Whalen MD [facility] [place]/[facility] /[id number] cc: Bridget Corey MD
[2018-10-31] VITALS (8 sets, daily range): BP systolic 128–199; BP diastolic 59–96
[2018-10-31] MEDS: ACETAMINOPHEN 325 MG/10 ML UDC PEG PRN ×2 (01:13→20:29)
--- NOTE | 2018-10-31 01:18 | NUR ---
DR Pat LLOYD IN UNIT,N/O RECEIVED TO RESTART XARELTO BACK.
[2018-10-31] MEDS: LEVALBUTEROL HCL SOLN NEBU 0.63 MG/3 ML NEB INH SCH ×4 (01:35→19:38)
[2018-10-31] MEDS: MEROPENEM 500MG/ NS 50ML 50 ML IV SCH ×4 (03:25→20:29)
[2018-10-31 05:15] LABS: BASOPHILS % 0.2 % (0.0-1.0); EOSINOPHILS # (AUTO) 0.1 (0.0-0.4); EOSINOPHILS % 2.3 % (0.0-6.0); HEMATOCRIT 32.4 % (34.2-44.1); LYMPHOCYTES # (AUTO) 0.9 (1.0-3.2); MEAN CORPUSCULAR HEMOGLOBIN 29.7 pg (28-32); MEAN CORPUSCULAR HGB CONC 30.9 g/dL (31-35); MEAN CORPUSCULAR VOLUME 96.1 fL (81-99); MONOCYTES # (AUTO) 0.4 (0.2-0.8); MONOCYTES % 8.1 % (4.4-11.3); NEUTROPHILS # (AUTO) 3.4 (2.1-6.9); PLATELET COUNT 270 x10e3/uL (140-360); RED BLOOD COUNT 3.37 x10e6/uL (3.6-5.1); RED CELL DISTRIBUTION WIDTH 13.7 % (11.7-14.4)
[2018-10-31] MEDS: LEVOTHYROXINE SODIUM 88 MCG TAB PO SCH (05:23)
[2018-10-31] MEDS: DEXTROSE 5%/0.9% SOD CHL 1,000 ML IV SCH (05:24)
[2018-10-31 05:54] LABS: ANION GAP 8.9 mmol/L (8-16); BLOOD UREA NITROGEN 14 mg/dL (7-26); BUN/CREATININE RATIO 19 (6-25); CALCIUM 8.6 mg/dL (8.4-10.2); CARBON DIOXIDE 28 mmol/L (22-29); CHLORIDE 107 mmol/L (98-107); CREATININE, SERUM 0.72 mg/dL (0.57-1.11); EST GLOMERULAR FILTRATION RATE > 60 ML/MIN (60-); GLUCOSE 154 mg/dL (74-118); POTASSIUM 3.9 mmol/L (3.5-5.1); SODIUM 140 mmol/L (136-145)
--- NOTE | 2018-10-31 07:23 | NUR ---
BEDSIDE REPORT GIVEN TO ONCOMING NURSE.
[2018-10-31] MEDS: BALSAM PERU/CASTOR OIL 60 GM OINT...G. TP SCH (09:00)
[2018-10-31] MEDS: MULTIVITAMINS 5 ML LIQUID GT SCH (10:00)
[2018-10-31] MEDS: FUROSEMIDE 20 MG TAB PO SCH (10:00)
[2018-10-31] MEDS: LACTULOSE SYRUP 20 GM/30 ML UDC PO SCH (10:00)
[2018-10-31] MEDS: LORATADINE 10 MG TAB PO SCH (10:00)
[2018-10-31] MEDS: METOPROLOL TARTRATE 25 MG TAB PO SCH ×2 (10:00→17:40)
--- NOTE | 2018-10-31 10:53 | NUR ---
Peg tube feeding bottle and tubing changed.
--- NOTE | 2018-10-31 13:28 | Progress Note ---
DATE: 10/31/2018 Medicine Progress Note SUBJECTIVE: The patient is a little bit confused today on examination, but the patient perked up as I continued to be in the room. PEG tube has been ordered and PEG tube was placed on yesterday. She is tolerating tube feeds well. We will monitor her overnight before being discharged tomorrow. PHYSICAL EXAMINATION: VITAL SIGNS: Temperature is 96.3, pulse 77, respiratory rate is 20, blood pressure is 129/69, and pulse ox is 100% on nasal cannula. GENERAL: No acute distress. Alert and oriented x3. Cooperative on examination. HEENT: Head is normocephalic and atraumatic. Eyes; pupils are equal, round, and reactive to light bilaterally. Extraocular movements are intact bilaterally. Throat, no evidence of erythema or exudates in the posterior pharynx. Has poor dentition. NECK: Supple with good range of motion. PULMONARY: Clear to auscultation bilaterally. No wheezing, no rales, no rhonchi, no crackles appreciated. CARDIOVASCULAR: Positive S1, S2. No murmurs, rubs, or gallops appreciated. ABDOMEN: Soft, nondistended, and nontender to palpation. Bowel sounds present. MUSCULOSKELETAL: Strength is 5/5 throughout. No evidence of any muscle deficits on examination. No weakness appreciated. NEUROLOGICAL: Cranial nerves II through XII grossly intact. No evidence of any neurological deficits on exam. SKIN: Intact. Warm to touch. Good cap refill. PSYCHIATRIC: Normal affect and mood. EXTREMITIES: No edema. Good range of motion throughout. LABORATORY DATA: Lab findings show white count of 4.7, hemoglobin of 10, hematocrit of 32, platelets of 270. Chemistry; sodium 140, potassium 3.9, chloride is 107, bicarb 28, anion gap of 8.9, BUN 14, creatinine is 0.72, glucose is 154, calcium is 8.6. IMAGING STUDIES: Nothing new. IMPRESSION: 1. Sepsis secondary to urinary tract infection with underlying aspiration pneumonia with improved fever and white count. 2. Urinary tract infection with extended-spectrum beta-lactamase. 3. Aspiration pneumonitis. 4. Moderate protein calorie malnutrition, now status post PEG tube placement on 10/30/2018 by Gastroenterology. 5. Baseline dementia. 6. History of atrial fibrillation, on anticoagulation. 7. History of cerebrovascular accident in the past, bed-bound. PLAN: At this time, continue with IV antibiotics for now. We will need to get the oral antibiotic regimen by ID hopefully today as the plan is to discharge tomorrow. She already has a PEG tube placed, she is already on tube feeds, we will continue the same plan of care for now. Work with PT and OT daily. Labs reviewed and stable, we will get a.m. labs. We will await for ID final recommendations for oral antibiotic therapy. Likely, she will be discharged tomorrow as the patient is currently doing well today, but slightly confused, we will need to monitor closely, it could be secondary to anesthesia from the PEG tube placement yesterday. MD LETICIA Pan/MAYA /[id number]
--- NOTE | 2018-10-31 16:10 | NUR ---
CM called and spoke to pt's son Clayton Mcdaniel [phone] and reminded him of Medicare Rights. He verbalized understanding. Signed copy placed in chart. Copy in pt's room. Mr. Mcdaniel asked about discharge plan. Informed him that per MD's note, likely will discharge tomorrow. He stated that no one has called to talk to him regarding plan. CM will have floor RN call him and update him on treatment plan.
[2018-10-31] MEDS: RIVAROXABAN 15 MG TABLET PO SCH (20:29)
[2018-10-31] MEDS: HYDRALAZINE HCL 20 MG/ML VIAL IV PRN (20:29)
[2018-10-31] MEDS: NORTRIPTYLINE HCL 25 MG CAP PO SCH (20:29)
--- NOTE | 2018-10-31 22:10 | NUR ---
high BP noted, hydralazine PRN given per OCT, recheck PB 128/64. Continue to monitor closely
[2018-11-01] VITALS: BP 123/72
[2018-11-01] MEDS: LEVALBUTEROL HCL SOLN NEBU 0.63 MG/3 ML NEB INH SCH ×4 (00:05→19:53)
[2018-11-01] MEDS: DEXTROSE 5%/0.9% SOD CHL 1,000 ML IV SCH ×3 (02:30→22:00)
[2018-11-01] MEDS: MEROPENEM 500MG/ NS 50ML 50 ML IV SCH ×3 (02:42→15:00)
[2018-11-01 04:00] VITALS: BP 158/74
[2018-11-01 05:35] LABS: BASOPHILS % 0.4 % (0.0-1.0); EOSINOPHILS # (AUTO) 0.1 (0.0-0.4); EOSINOPHILS % 2.7 % (0.0-6.0); HEMOGLOBIN 11.2 g/dL (12.0-16.0); LYMPHOCYTES # (AUTO) 1.1 (1.0-3.2); LYMPHOCYTES % 21.6 % (18.0-39.1); MEAN CORPUSCULAR HEMOGLOBIN 29.8 pg (28-32); MEAN CORPUSCULAR HGB CONC 31.1 g/dL (31-35); MEAN CORPUSCULAR VOLUME 95.7 fL (81-99); MONOCYTES # (AUTO) 0.4 (0.2-0.8); MONOCYTES % 7.6 % (4.4-11.3); NEUTROPHILS # (AUTO) 3.4 (2.1-6.9); NEUTROPHILS % 66.3 % (38.7-80.0); PLATELET COUNT 328 x10e3/uL (140-360); RED BLOOD COUNT 3.76 x10e6/uL (3.6-5.1); RED CELL DISTRIBUTION WIDTH 13.5 % (11.7-14.4)
[2018-11-01] MEDS: LEVOTHYROXINE SODIUM 88 MCG TAB PO SCH (05:41)
--- NOTE | 2018-11-01 06:50 | NUR ---
paged Dr Whalen for tube feeding order. Awaiting for MD to call back
[2018-11-01 07:10] LABS: BLOOD UREA NITROGEN 17 mg/dL (7-26); BUN/CREATININE RATIO 25 (6-25); CALCIUM 9.3 mg/dL (8.4-10.2); CARBON DIOXIDE 28 mmol/L (22-29); CHLORIDE 102 mmol/L (98-107); CREATININE, SERUM 0.69 mg/dL (0.57-1.11); EST GLOMERULAR FILTRATION RATE > 60 ML/MIN (60-); GLUCOSE 167 mg/dL (74-118); SODIUM 136 mmol/L (136-145)
[2018-11-01 08:00] VITALS: BP 154/69
[2018-11-01] MEDS: LORATADINE 10 MG TAB PO SCH (10:00)
[2018-11-01] MEDS: MULTIVITAMINS 5 ML LIQUID GT SCH (10:00)
[2018-11-01] MEDS: LACTULOSE SYRUP 20 GM/30 ML UDC PO SCH (10:00)
[2018-11-01] MEDS: METOPROLOL TARTRATE 25 MG TAB PO SCH ×2 (10:01→17:55)
[2018-11-01] MEDS: FUROSEMIDE 20 MG TAB PO SCH (10:01)
--- NOTE | 2018-11-01 10:28 | NUR ---
Tube feeding bottle and tubing changed.
--- NOTE | 2018-11-01 10:57 | NUR ---
PT TO RETURN TO [facility] FAX [phone]
[2018-11-01 12:00] VITALS: BP 154/75
--- NOTE | 2018-11-01 13:00 | NUR ---
NEW IV placed to left AC
--- NOTE | 2018-11-01 13:31 | Progress Note ---
DATE: 11/01/2018 SUBJECTIVE: The patient is doing much better now, she is tolerating her tube feeds well. We have Speech eval that need to come to re-evaluate the patient. We are still waiting on final recommendations from ID in terms of antibiotic regimen. No overnight events. OBJECTIVE: VITAL SIGNS: Temperature is 96.4, pulse 94, respiratory rate is 20, blood pressure 154/69. She is on nasal cannula 2 L. GENERAL: Not in acute distress. Alert and oriented x3. Cooperative on examination. HEENT: Head is normocephalic and atraumatic. Eyes; pupils are equal, round, and reactive to light bilaterally. Extraocular movements are intact bilaterally. Throat, no evidence of erythema or exudates in the posterior pharynx. Has poor dentition. NECK: Supple. Good range of motion. PULMONARY: Clear to auscultation bilaterally. No wheezing, no rales, no rhonchi, no crackles appreciated. CARDIOVASCULAR: Positive S1, S2. No murmurs, rubs, or gallops appreciated. ABDOMEN: Soft, nondistended, and nontender to palpation. Bowel sounds present. MUSCULOSKELETAL: Strength is 5/5 throughout. No evidence of any muscle deficits on examination. No weakness appreciated. NEUROLOGICAL: Cranial nerves II through XII grossly intact. No evidence of any neurological deficits on exam. SKIN: Intact. Warm to touch. Good cap refill. PSYCHIATRIC: Normal affect and mood. EXTREMITIES: No edema. Good range of motion throughout. MICROBIOLOGY: Noted. IMAGING: Noted. IMPRESSION: 1. Sepsis secondary to urinary tract infection with underlying aspiration pneumonia with improved fever and white count. 2. Urinary tract infection with extended-spectrum beta-lactamase. 3. Aspiration pneumonitis. 4. Moderate protein calorie malnutrition, status post PEG tube placement by Gastroenterology, on 10/30/2018, now tolerating feeds. 5. Baseline dementia. 6. History of atrial fibrillation, on anticoagulation. 7. History of cerebrovascular accident in the past, bed-bound. PLAN: At this time, she is on IV antibiotics. I need to get to oral regimen in order for the patient to be discharged home today. I will communicate with ID as well. She is tolerating her PEG tube feeds well. She is working with PT and OT daily. Labs reviewed and stable. We are waiting for Speech eval that was supposed to be done earlier in the week, which was not. If the comes back and we have a plan from Speech Therapy and we have a plan on which oral antibiotics to discharge home on, the patient is [facility]. Discussed with nursing staff. MD LETICIA Pan/MAYA /[id number]
--- NOTE | 2018-11-01 14:30 | NUR ---
Speech therapist discussed results of MBS with patient's sons Kwaku and Clayton (ARTURO).
--- NOTE | 2018-11-01 14:37 | NUR ---
Paged ID to clarify IV antibiotic orders for discharge. Waiting directional bore operator back.
[2018-11-01 16:00] VITALS: BP 145/86
--- NOTE | 2018-11-01 17:19 | NUR ---
Notified Dr. Corey that Dr. Poole cleared patient for discharge/transfer back to intermediate and that she does not need any more IV antibiotics.
--- NOTE | 2018-11-01 17:19 | NUR ---
Spoke to Dr. Poole, he stated patient does not need any more antibiotics and can be transferred back to [facility].
[2018-11-01] MEDS: BALSAM PERU/CASTOR OIL 60 GM OINT...G. TP SCH (18:14)
--- NOTE | 2018-11-01 18:25 | NUR ---
Notified Dr. Corey that case management needs to resend clinicals to intermediate prior to transferring back to intermediate but case management has left for the day, placed order to be done in the am 11/02 so patient can be discharged back to intermediate. Patient's son Kwaku is here, he was also updated on plan of care at this time.
[2018-11-01 20:00] VITALS: BP 161/77
--- NOTE | 2018-11-01 20:38 | Progress Note ---
DATE: SUBJECTIVE: Ms. Mcdaniel is doing well. She has no complaints. REVIEW OF SYSTEMS: HEENT: Negative. PULMONARY: Negative. CARDIAC: Negative. GI: Negative. PHYSICAL EXAMINATION: GENERAL: She is currently alert and oriented, does not seem to be in acute distress. VITAL SIGNS: Stable. Afebrile. HEENT: She is not icteric. NECK: Supple. CHEST: Clear bilateral. HEART: S1, S2. No S3, S4, murmur. ABDOMEN: Soft. Bowel sounds present. No tenderness. EXTREMITIES: No edema. SKIN: No rash. Her blood cultures have been negative. IMPRESSION: 1. Aspiration pneumonia, resolved, status post 5 days of IV antibiotic. Can discontinue antibiotic. 2. Bacteria colonization with extended-spectrum beta-lactamase in a patient with chronic Velazco. The patient can be discharged home. 3. Aspiration precaution. 4. Hypothyroidism. 5. Debilitated. 6. Anemia of chronic disease. MD ESTEFANI Enriquez/MAYA /[id number]
[2018-11-01] MEDS: RIVAROXABAN 15 MG TABLET PO SCH (22:00)
[2018-11-01] MEDS: NORTRIPTYLINE HCL 25 MG CAP PO SCH (22:00)
[2018-11-02] VITALS: BP 153/72
[2018-11-02] MEDS: LEVALBUTEROL HCL SOLN NEBU 0.63 MG/3 ML NEB INH SCH ×3 (00:19→13:00)
[2018-11-02] MEDS ORDERED: LACTULOSE SYRUP 20 GM/30 ML UDC PO PRN (01:45)
[2018-11-02 04:00] VITALS: BP 140/66
--- NOTE | 2018-11-02 04:51 | Diagnostic Imaging Report ---
EXAM: Modified barium swallow INDICATION: Aspiration, CVA COMPARISON: None FINDINGS: This examination was conducted in conjunction with speech pathologist. Patient was given, by mouth, liquids and solids of various consistencies. Examination showed premature spillage over the base of the tongue, vallecula and piriform sinuses with all consistencies. Minimal to caleb overt aspiration of thin liquids during the swallow was noted caleb overt aspiration of thick puree was noted after the swallow. Moderate to severe vallecular and piriform sinus residue was noted after swallows of all consistencies. Fluoro time: 2.4 minutes IMPRESSION: <Severe dysphagia with overt aspiration of multiple consistencies. Please see speech pathology report for detailed description and recommendations.> Signed by: Dr. Gilmer Liu M.D. on 11/02/2018 4:48 AM
[2018-11-02] MEDS: LEVOTHYROXINE SODIUM 88 MCG TAB PO SCH (05:19)
--- NOTE | 2018-11-02 07:00 | NUR ---
RCD PT AT BED PT IS CONFUSED ASSESSMENT DONE PT IN OSMOLYTE 55 ML BY TUBE FEED IV PATENT PT RESTING ON BED NO SIGNS OF ANY DISTRESS NOTED BED LOW AND LOCKED CALL LIGHT IN REACH
[2018-11-02 08:31] VITALS: BP 142/77
[2018-11-02] MEDS: METOPROLOL TARTRATE 25 MG TAB PO SCH (09:00)
[2018-11-02] MEDS: LORATADINE 10 MG TAB PO SCH (09:00)
[2018-11-02] MEDS: BALSAM PERU/CASTOR OIL 60 GM OINT...G. TP SCH (09:00)
[2018-11-02] MEDS: MULTIVITAMINS 5 ML LIQUID GT SCH (09:00)
[2018-11-02] MEDS: FUROSEMIDE 20 MG TAB PO SCH (09:00)
[2018-11-02 09:27] VITALS: BP 142/77
--- NOTE | 2018-11-02 09:34 | NUR ---
Nutrition Intervention Note RD Recommendation(s) for Physician: - Continue current TF order - Check labs, daily weight and GI tolerance Plan of Care: RD following, monitoring for tolerance and adequacy, TF rec Nutrition reason for involvement: Follow up RD Assessment 11/02: Follow up. Pt was discussed during AM rounds. Repeat MBS showed severe dysphagia with overt aspiration of multiple consistencies. Possible discharge after WET PROCESS MILLER HEAD see pt. Per RN Denice, pt was tolerating Osmolite 1.2 @ goal rate of 55mL/hr well. No gastric residual noted. Will continue to monitor and follow. 10/29: Follow up. Pt discussed during am rounds. Pt pulled out PEG this am, MD aware per RN, and plan for EGD and replacement today or tomorrow with addition of abdominal binder. Pt previously tolerating TF at goal rate per RN prior to pt pulling out PEG. No WET PROCESS MILLER HEAD evaluation noted per chart. Chart reviewed. Pt now on D5NS at 75 ml/hr. Will monitor and continue to follow. 10/24 Chart reviewed. 83yo F, who was admitted for aspiration PNA. Pt came from a halfway with PEG tube POA. Per RN Brenda, pt ate 50% of her oatmeal and was coughing after drinking milk this AM. Pt was able to tolerate soft foods alright. Per son, pt was on a pureed diet with Ensure at the halfway. Pt also got supplemental EN (bolus feeding of 4x 250cc Fibersource) through PEG at night time if her PO intake during the day was low. No GI complains noted. Per son, pt was having significant weight loss due to ill-fitting denture about 8 months ago. Since the denture was removed, pt has been maintaining her weight at 110lb. WET PROCESS MILLER HEAD has been consulted. Spoke to Dr. Corey regarding RD recommendation. Dr. Corey agreed with plan; order has been placed. Will continue to monitor and follow. Principal Problems/Diagnoses: Aspiration PNA PMH: HTN, IA, CVA, hypothyroidism, dementia, stroke, CVA w/ R side weakness GI: abdomen soft, LBM 11/02 Skin: Stage II PU to back Labs: 11/01: Glucose 167 H 10/28: Gluc 128, Ca 8.3 Meds: MVI, lasix, synthroid, xarelto, dextrose Ht: 63 in (approximation) Wt: 113.31lb BMI: 20kg/m2 IBW: 115lb Malnutrition Evaluation (10/24/2018) The patient does not meet criteria for a specified degree of malnutrition at this time. Will re-evaluate at follow-up as appropriate. Nutrition Prescription (Diet Order): TF Osmolite 1.2 at 55 ml/hr Estimated Nutritional Needs: Calories: 1300 1820kcal (25-35kcal/kg/d) Weight used: Current BW Protein: 52 78g (1-1.5g/kg/d) Weight used: Current BW Diet Adequacy: meeting calorie needs, meeting protein needs Diet Education Needs Assessment: Diet education not indicated; pt on TF. Nutrition Care Level: low (stable TF) Nutrition Diagnosis: Inadequate oral intake related to chronic illness as evidenced by pt requiring EN as main source of nutrition. Goal: Patient will meet 75-100% of estimated needs by follow up Progress: Goal met Interventions: Composition, Rate, Route, Collaboration with other providers Monitoring/Evaluation: Total energy intake, Total protein intake, Formula/Solution, Labs, GI tolerance, Weight change Signed: Key Hyman, ,RD,LD
--- NOTE | 2018-11-02 11:50 | NUR ---
CM to bedside to discuss [facility] patients rights. Patient with cognitive limitation. IMM discussed with patient's son and verbal acknowledgement given by son via telephone and witnessed by Jennifer RN. Mr. Mcdaniel (son) verbalized understanding of discussion. Copy of IMM on chart and at the bedside.
[2018-11-02 12:00] VITALS: BP 166/72
--- NOTE | 2018-11-02 14:52 | NUR ---
PT ACCEPTED TO SNF, RTF COMPLETED AND GIVEN TO PIPELINE MAINTENANCE SUPERVISOR, PT READY FOR TRANSFER
--- NOTE | 2018-11-02 14:53 | NUR ---
SPOKE WITH SON VEL (POA) ABOUT TRANSFER TO [facility], GAVE VERBAL CONSENT VIA PHONE AND STATES DOES NOT CARE WHAT AMBULANCE TRANSPORTS. SPOKE WITH WALTER SON ON SITE, NOTIFYING HIM OF ACCEPTANCE AND TRANSFER TO FACILITY, HE AGREED.
--- NOTE | 2018-11-02 15:40 | NUR ---
PT DISCHARGED TO [facility] HOME IN SAFE CONDITION
[2018-11-02 16:33] VITALS: BP 116/69
--- NOTE | 2018-11-03 10:06 | Discharge Summary ---
FINAL DISCHARGE DIAGNOSES: 1. Sepsis secondary to urinary tract infection with underlying aspiration pneumonia with improved fever and white count now. We would continue with no more antibiotic. 2. Urinary tract infection and extended-spectrum beta-lactamase. 3. Aspiration pneumonitis. 4. Moderate protein-calorie malnutrition, status post percutaneous endoscopic gastrostomy tube replaced on 10/30/2018, by GI, tolerating feeds. 5. Baseline dementia. 6. Atrial fibrillation . 7. Cerebrovascular accident in the past. PHYSICAL EXAMINATION: VITAL SIGNS: Temperature 96.8, pulse 90, respiratory rate is 18, blood pressure 142/77, and pulse ox 98% on 2 L nasal cannula. LABORATORY DATA: Lab findings show white count 5.1, hemoglobin 11.2, hematocrit 36, platelets of 328. Chemistry; sodium 136, potassium 4, chloride 102, bicarb 28, anion gap of 10, BUN of 17, creatinine of 0.69, glucose is 167, calcium is 9.3. Troponins were all negative. Urinalysis is concerning for underlying UTI. Urine culture positive for ESBL E coli. Sputum culture, Pseudomonas ESBL E coli. Blood cultures were negative. Repeat blood cultures were negative as well so, 4/4 were negative. IMAGING STUDIES: Chest x-ray on admission shows concern for underlying pneumonia. Brain CT was found to be negative for any acute findings. Chest x-ray on 10/27/2018, shows mild bibasilar linear opacification developing excluded. Modified-barium swallow, the patient failed on 2 occasions. HOSPITAL COURSE: This is an 83-year-old female, who [facility], bedbound from a history of CVA in the past, PEG tube fed, was on a pureed diet at the penitentiary, comes in as a transfer from an outside penitentiary with encephalopathy and fever. The patient was found to have a positive sputum culture and urinary tract infection, requiring IV antibiotics. ID was consulted. Sputum culture, urine culture, and blood culture were noted above. The patient maintained on IV antibiotics while here in the hospital. During the hospital course, she did develop a repeat fever, in which antibiotics were adjusted accordingly. The patient improved, her white count was normal, and she was afebrile prior to being discharged. She did have some concerns for underlying aspiration pneumonia and also the UTI leading to the etiology of her infection. While here in the hospital, the patient pulled her PEG tube in the middle of the night, requiring a GI consultation. The patient had her PEG tube replaced on 10/30/2018, by GI. The patient tolerated tube feeds well. On discharge, the patient was back to normal baseline with no other complaints. She has been cleared by both consultants, GI and ID for discharge home. All antibiotics have been discontinued, no need for antibiotics on discharge. On the day of discharge, vital signs were stable, labs have been stable. The patient seen, evaluated, and examined thoroughly on the day of discharge, no other complaints. The patient and the family verbalized understanding and agreed with plan of care to follow up as an outpatient with the primary care physician in 1 week time. Once again, the patient is back to her normal baseline. I discussed the plan of care with the son, who is currently at bedside at this moment and he verbalized understanding. MEDICATIONS: See med reconciliation form. DISPOSITION: To home. CONDITION: Stable. DIET: Tube feeds. In the event of any worsening symptoms, the patient advised to come back to the ED for further evaluation. Discharge summary took greater than 35 minutes. MD LETICIA Pan/MAYA /[id number]
== END 2018-11-02 15:46 | DRG 871 ==
LOC: ER 11:36 → ERHOLD 20:17 → ICU 23:17 → MED/SURG2 10-25 19:56
PROVIDERS: ADMIT Internal Medicine; ATTEND Internal Medicine
PROC: 0DH63UZ Insertion of Feeding Device into Stomach, Percutaneous Approach (ICD-10-PCS; principal; 2018-10-30 15:23)
DX: A41.9 Sepsis, unspecified organism (principal); J69.0 Pneumonitis due to inhalation of food and vomit; N39.0 Urinary tract infection, site not specified; E44.0 Moderate protein-calorie malnutrition; E87.2 Acidosis; Z43.1 Encounter for attention to gastrostomy; Z74.01 Bed confinement status; R62.7 Adult failure to thrive; Z86.73 Personal history of transient ischemic attack (TIA), and cerebral infarction without residual deficits; I48.91 Unspecified atrial fibrillation; Z79.01 Long term (current) use of anticoagulants; Z68.20 Body mass index [BMI] 20.0-20.9, adult; K44.9 Diaphragmatic hernia without obstruction or gangrene; K29.70 Gastritis, unspecified, without bleeding; Z88.0 Allergy status to penicillin; Z88.2 Allergy status to sulfonamides; Z91.012 Allergy to eggs; G30.9 Alzheimer's disease, unspecified; F02.80 Dementia in other diseases classified elsewhere, unspecified severity, without behavioral disturbance, psychotic disturbance, mood disturbance, and anxiety
CPT/HCPCS: 36415; 43246; 70450; 71045; 74230; 80048; 80053; 81001; 82550; 82553; 82948; 83605; 83735; 84484; 85025; 87040; 87070; 87086; 87186; 87205; 93005; 94640; 97139; 99284; J0360; J0696; J2185; J2250; J3475; J7030; J7042; J7050